=== PATIENT | female | born 1955 | race Caucasian/White ===

== ENCOUNTER 2017-11-25 09:24 | Inpatient (IN) | payer MEDICARE, MEDICAID ==
[~2017-11-25] VITALS: Ht 175.3 cm; Wt 118.1 kg
[~2017-11-25 09:24] MED LIST changes: -ALBU2.5V36 NEB; -IPRA3AMP10 NEB; -PRED-1 PO; -SIMV-49 PO
[2017-11-25] MEDS ORDERED: SIMV-49 PO (09:46)
--- NOTE | 2017-11-25 09:53 | ER Report ---
History and Physical Time Seen By MD: 09:30 Hx. of Stated Complaint: Pt. called EMS for CP/SOB. O2 <50% on home O2 2L. 15L applied with Albuterol x 1. 95% now on NRGB 15L. 18g IV started and blood drawn prior to arrival. 12 lead unsuccessful due to coughing. BP 108 systolic. From home with grand daughter. Allergies: Coded Allergies: latex (Verified Allergy, Unknown, EYE REACTION, 12/20/14) Home Meds Reported Medications Simvastatin (SIMVASTATIN) 20 Mg Tablet, 10 MG PO HS, TAB 11/25/17 Triamterene/Hydrochlorothiazid (DYAZIDE 37.5-25 CAPSULE) 1 Each Capsule, 1 EACH PO DAILY, #30 0 Refills For blood pressure and leg swelling 08/07/12 Amlodipine Besylate (AMLODIPINE BESYLATE) 10 Mg Tablet, 1 TAB PO QDAY, 0 Refills 08/07/12 Discontinued Reported Medications Acetaminophen (ACETAMINOPHEN) 500 Mg Tablet, 500 - 1000 MG PO Q6H PRN 08/07/12 Hx Smoking: Yes Smoking Status: Current: Every Day Smoker Hx Substance Use Disorder: No Hx Alcohol Use: Yes Constitutional Vital Sign - Last 24 Hours 11/25/17 09:25 Resp 22 B/P (MAP) 118/72 Pulse Ox 91 O2 Delivery Non-Rebreather Depart Departure Latest Vital Signs Vital Signs Date Time Temp Pulse Resp B/P (MAP) Pulse Ox O2 Delivery O2 Flow Rate FiO2 11/25/17 09:25 22 118/72 91 Non-Rebreather Condition: Stable Disposition: HOME OR SELF-CARE Referrals: BRIAN GO DO (PCP) VVIEK JERRY MD Nov 25, 2017 09:53
--- NOTE | 2017-11-25 09:55 | EKG ---
FACILITY: [facility] [place] PATIENT NAME: KEON FORBES : [id number] MR: [id number] V: [id number] EXAM DATE: ORDERING PHYSICIAN: VIVEK JERRY TECHNOLOGIST: Test Reason : SOB Blood Pressure : / mmHG Vent. Rate : 083 BPM Atrial Rate : 083 BPM P-R Int : 124 ms QRS Dur : 100 ms QT Int : 406 ms P-R-T Axes : 062 108 066 degrees QTc Int : 477 ms Sinus rhythm with premature atrial complexes Possible Left atrial enlargement Incomplete right bundle branch block Right ventricular hypertrophy with repolarization abnormality Septal infarct (cited on or before 04-AUG-2012) Abnormal ECG When compared with ECG of 07-AUG-2013 15:37, premature atrial complexes are now present Incomplete right bundle branch block is now present Confirmed by LUCA BELLO ([id number]) on 11/25/2017 6:08:02 PM Referred By: Confirmed By:LUCA BELLO
[2017-11-25 10:02] LABS: PLATELET COUNT, AUTOMATED 271 K/uL (150-450)
--- NOTE | 2017-11-25 10:27 | RADIOLOGY IMAGING REPORT ---
FACILITY: [facility] [place] PATIENT NAME: Anne Watkins : 1955 MR: [id number] V: [id number] EXAM DATE: ORDERING PHYSICIAN: VIVEK JERRY TECHNOLOGIST: Location: [facility] - [place], [place] Patient: Anne Watkins : 1955 Visit/Account:[id number] Date of Sevice: 11/25/2017 Exam type: CHEST PA AND LAT History: Shortness of breath and hypoxia and cough Comparison: Chest PA and lateral August 05, 2012. Findings: There are small bilateral pleural effusions present. Coarse linear stranding in the lung bases may r epresent atelectasis and/or developing infiltrates. The cardiac silhouette is enlarged slightly incr eased when compared the prior study. There is no evidence of overt pulmonary edema. Mild spondyloti c changes of the thoracic spine. IMPRESSION: 1. Small bilateral pleural effusions and coarse linear stranding in the lung bases which may represe nt atelectasis and/or developing infiltrates. Cardiomegaly slightly increased when compared the prior study Report Dictated By: Juliana Huynh MD at 11/25/2017 10:20 AM Report E-Signed By: Juliana Huynh MD at 11/25/2017 10:23 AM WSN:[email or web address]
--- NOTE | 2017-11-25 10:27 | ER Report ---
History and Physical Time Seen By MD: 09:35 Hx. of Stated Complaint: Pt. called EMS for CP/SOB. O2 <50% on home O2 2L. 15L applied with Albuterol x 1. 95% now on NRGB 15L. 18g IV started and blood drawn prior to arrival. 12 lead unsuccessful due to coughing. BP 108 systolic. From home with grand daughter. HPI/ROS CHIEF COMPLAINT: Redness of breath HISTORY OF PRESENT ILLNESS: Patient is a 62-year-old female long past medical history of COPD secondary to about 81-83-leec-year smoking history still Mateus smokes about a pack a day currently on 24 7 oxygen was noted by family to be more lethargic and less active confused worsening shortness of breath no orthopnea or PND no chest pain associated was noted by EMS to be a 50% on supplemental O2 well at home patient states that she has exertional dyspnea states that she thinks oxygen off when she smokes patient denies abdominal pain nausea vomiting diarrhea fever chills or additional complaints noted REVIEW OF SYSTEMS: Respiratory: No cough, has dyspnea. Cardiovascular: No chest pain, no palpitations. Gastrointestinal: No vomiting, no abdominal pain. Musculoskeletal: No back pain. Remainder of the 14 system rev: Yes Allergies: Coded Allergies: latex (Verified Allergy, Unknown, EYE REACTION, 12/20/14) Home Meds Active Scripts Prednisone 10 Mg Tab (PREDNISONE 10 MG TAB) 10 Mg Tablet, 10 MG PO DIRECTED, #30 TAB Take 4 tab daily x 3 days, then 3 tab daily x 3 days, then 2 tab daily x 3 days, then 1 tab daily x 3 days. Prov:LUCA BELLO DO 11/30/17 Ipratropium/Albuterol Sulfate (IPRAT-ALBUT 0.5-3(2.5) MG/3 ML) 3 Ml Ampul.neb, 3 ML NEB QIDR, #30 VIAL Prov:LUCA BELLO DO 11/30/17 Albuterol Sulfate 0.083% (ALBUTEROL SULFATE 0.083%) 2.5 Mg/3 Ml Vial.neb, 2.5 MG NEB Q2HR PRN for WHEEZING/SHORTNESS OF BREATH, #30 VIAL Prov:LUCA BELLO DO 11/30/17 Reported Medications Simvastatin (SIMVASTATIN) 20 Mg Tablet, 10 MG PO HS, TAB 11/25/17 Triamterene/Hydrochlorothiazid (DYAZIDE 37.5-25 CAPSULE) 1 Each Capsule, 1 EACH PO DAILY, #30 0 Refills For blood pressure and leg swelling 08/07/12 Amlodipine Besylate (AMLODIPINE BESYLATE) 10 Mg Tablet, 1 TAB PO QDAY, 0 Refills 08/07/12 Discontinued Reported Medications Acetaminophen (ACETAMINOPHEN) 500 Mg Tablet, 500 - 1000 MG PO Q6H PRN 08/07/12 Reviewed Nurses Notes: Yes Old Medical Records Reviewed: Yes Hx Smoking: Yes Smoking Status: Current: Every Day Smoker Hx Substance Use Disorder: No Hx Alcohol Use: Yes Constitutional Physical Exam General Appearance: The patient is alert, has no immediate need for airway protection and no current signs of toxicity. No respiratory distress but definitely work of breathing Eyes: Pupils equal and round no injection. Respiratory: Decreased breath sounds are distant with some coarse rhonchi Cardiac: regular rate and rhythm [ ] Gastrointestinal: Abdomen is soft and non tender, no masses, bowel sounds normal. Musculoskeletal: Neck: Neck is supple and non tender. Extremities have full range of motion and are non tender. Skin: No rashes or lesions. [ ] DIFFERENTIAL DIAGNOSIS: After history and physical exam differential diagnosis was considered for COPD exacerbation CHF exacerbation respiratory compromise cardiac ischemia CO2 narcosis Medical Decision Making Data Points Result Diagram: 11/28/17 0620 11/28/17 0620 Laboratory Hematology Test 11/25/17 09:20 11/25/17 10:04 D-Dimer Quantitative (PE/DVT) 0.68 ug/ml (0-0.50) Troponin I 0.019 ng/ml B-Type Natriuretic Peptide 238 pg/ml (0-100) Influenza Virus Type A (PCR) Negative (NEGATIVE) Influenza Virus Type B (PCR) Negative (NEGATIVE) Chemistry Test 11/25/17 09:20 11/25/17 10:04 D-Dimer Quantitative (PE/DVT) 0.68 ug/ml (0-0.50) Troponin I 0.019 ng/ml B-Type Natriuretic Peptide 238 pg/ml (0-100) Influenza Virus Type A (PCR) Negative (NEGATIVE) Influenza Virus Type B (PCR) Negative (NEGATIVE) Coagulation Test 11/25/17 09:20 D-Dimer Quantitative (PE/DVT) 0.68 ug/ml Microbiology Microbiology Date/Time Source Procedure Growth Status 11/25/17 11:46 Blood Blood Culture - Final NO GROWTH AFTER 5 DAYS IN BOTH THE AE... Complete 11/25/17 11:26 Blood Blood Culture - Final NO GROWTH AFTER 5 DAYS IN BOTH THE AE... Complete ED Course/Re-evaluation ED Course Patient was endorsed oncoming physician Decision to Disposition Date: Dec 01, 2017 Decision to Disposition Time: 08:00 Depart Departure Latest Vital Signs Condition: Improved Disposition: HOME OR SELF-CARE Referrals: BRIAN GO DO (PCP) New Scripts Prednisone 10 Mg Tab (PREDNISONE 10 MG TAB) 10 Mg Tablet 10 MG PO DIRECTED, #30 TAB Take 4 tab daily x 3 days, then 3 tab daily x 3 days, then 2 tab daily x 3 days, then 1 tab daily x 3 days. Prov: LUCA BELLO DO 11/30/17 Ipratropium/Albuterol Sulfate (IPRAT-ALBUT 0.5-3(2.5) MG/3 ML) 3 Ml Ampul.neb 3 ML NEB QIDR, #30 VIAL Prov: LUCA BELLO DO 11/30/17 Albuterol Sulfate 0.083% (ALBUTEROL SULFATE 0.083%) 2.5 Mg/3 Ml Vial.neb 2.5 MG NEB Q2HR PRN for WHEEZING/SHORTNESS OF BREATH, #30 VIAL Prov: LUCA BELLO DO 11/30/17 CARMELA FARRELL MD Nov 25, 2017 10:27
[2017-11-25] MEDS ORDERED: LEVOFLOXACIN/D5W*500 MG/100 ML 100 ML IVPB ONE (10:30)
[2017-11-25] MEDS ORDERED: ALBUTEROL/IPRATROPIUM 3 ML NEB NEB ONE ×2 (10:30→13:55)
[2017-11-25] MEDS ORDERED: methylPREDNIS SUCC 125 MG/2ML IVP ONE (10:30)
[2017-11-25] MEDS ORDERED: IOPAMIDOL 76% 75 ML INFUS BTL 75 ML ONE (12:24)
[2017-11-25] MEDS ORDERED: NS(*) 0.9% 50 ML BAG 50 ML ONE (12:24)
--- NOTE | 2017-11-25 13:18 | RADIOLOGY IMAGING REPORT ---
FACILITY: [facility] PATIENT NAME: Anne Watkins : 1955 MR: [id number] V: [id number] EXAM DATE: ORDERING PHYSICIAN: VIVEK JERRY TECHNOLOGIST: Location: [place] [facility] [place] Patient: Anne Watkins : 1955 Visit/Account:[id number] Date of Sevice: 11/25/2017 CT angiogram chest with contrast Indication: Shortness of breath. Elevated d-dimer. Comparison: 08/07/2013. Technique: Axial CT images are obtained through the chest after administration of 75 mL Isovue 370 IV contrast. Reformatted coronal and sagittal images were reviewed as well as coronal MIP images. One of the following dose optimization techniques was utilized in the performance of this exam: auto mated exposure control; adjustment of the mA and/or kV according to the patient's size; or use of an iterative reconstruction technique. Specific details can be referenced in the facility's radiology C T exam operational policy. FINDINGS: No evidence of filling defect within the pulmonary vasculature to suggest pulmonary embolus. The heart is upper limits normal for size with minimal pericardial fluid. The aorta shows mild ather osclerotic calcific changes without aneurysm or dissection. Mediastinum and hilar regions show a few prominent lymph nodes, largest in the right pretracheal space measuring 2.6 x 1.4 cm and the prevasc ular space measuring 2.7 x 1.3 cm. Prominent right hilar lymph node measuring 2.2 x 1.9 cm. Lymphad enopathy is more prominent than the previous examination. No abnormal density seen in the mediastinu m. Small bilateral pleural effusions, right greater the left. Bibasilar consolidation is present slight ly more so on the right side. Mild atelectasis seen in the anterior aspect both middle lung daniel. Diffuse emphysematous changes. No other consolidations, pneumothorax. There are some mild scarring seen in both lungs. The right lung does show at least two nodules. One lung the minor fissure irwin uring 7 x 4 mm seen on image #49 of series 5. Superior aspect of the right lower lobe does show a 1. 2 x 1.0 cm on image #44. There is a third faint nodular opacity seen along the lateral pleural-based area of the right lower lobe measuring 1.0 x 0.7 cm seen on image #62. No other discrete nodules ar e seen in either lung. The airways are clear. The above lung findings are new from the previous exa mination. Bony structures show no acute fracture or aggressive bony lesions. Degenerative change seen spine. Chest wall shows no enlarged axillary lymph nodes or masses. Limited views of the upper abdomen are unremarkable. IMPRESSION: 1. No evidence of pulmonary embolus. 2. Small bilateral pleural effusions, right greater the left. There is also by basilar consolidation slightly more so on the right side. This consolidation could be secondary to atelectasis or infiltr ate. Mild atelectasis seen along the anterior aspect of both middle lung daniel. 3. There are new right lung nodules described above with the largest measuring 1.2 cm. These are no nspecific this time, however cannot exclude neoplastic or metastatic disease. Suggest follow-up per Fleischner guidelines described below. 4. More prominent lymphadenopathy is nonspecific this time. 5. The heart remains upper limits normal size with minimal pericardial fluid which is not appreciate d previously. FLEISCHNER SOCIETY FOLLOW-UP GUIDELINES FOR NEWLY DETECTED INCIDENTAL NODULES IN PERSONS 35 YEARS OF AGE OR OLDER. *THESE RECOMMENDATIONS DO NOT APPLY TO LUNG CANCER SCREENING, PATIENTS WITH IMMUNOSUPPRESSION , OR PA TIENTS WITH KNOWN PRIMARY MALIGNANCY. MULTIPLE SOLID NODULES If largest nodule size is less than 6 mm: Low risk patient - no follow up needed High risk patient - Optional CT at 12 months. If largest nodule size is 6-8 mm: Low risk patient - follow up CT at 3-6 months, then consider CT at 18-24 months if no change. High risk patient - follow up CT at 3-6 months, then CT at 18-24 months if no change. If largest nodule size is greater than 8 mm: Low risk patient - follow up CT at 3-6 months, then consider CT at 18-24 months High risk patient - follow up CT at 3-6 months, then at 18-24 monthsLOW RISK PATIENT: Minimal or abse nt history of tobacco use and of other known risk factors. HIGH RISK PATIENT: Tobacco use, family history of lung cancer, upper pulmonary lobe location of nodul e, presence of emphysema, pulmonary fibrosis, older age. Janet H, Rachel DP, Edie JM, et al. Guidelines for Management of Incidental Pulmonary Nodules Dete cted on CT Images: From the Fleischner Society 2017. Radiology. Report Dictated By: Leoncio Anthony at 11/25/2017 12:59 PM Report E-Signed By: Leoncio Anthony at 11/25/2017 1:14 PM WSN:[email or web address]
[2017-11-25 14:32] VITALS: BP 122/76
[2017-11-25] MEDS ORDERED: ALBUTEROL 2.5 MG/3 ML NEB NEB PRN (15:25)
--- NOTE | 2017-11-25 15:48 | History & Physical ---
History of Present Illness Chief Complaint Shortness of breath History of Present Illness This patient presented to the emergency room complaining of increased cough and shortness of breath. She reports that her symptoms started this morning. She denies fever. History Problems: (1) Hypertension Home Meds Reported Medications Simvastatin (SIMVASTATIN) 20 Mg Tablet, 10 MG PO HS, TAB 11/25/17 Triamterene/Hydrochlorothiazid (DYAZIDE 37.5-25 CAPSULE) 1 Each Capsule, 1 EACH PO DAILY, #30 0 Refills For blood pressure and leg swelling 08/07/12 Amlodipine Besylate (AMLODIPINE BESYLATE) 10 Mg Tablet, 1 TAB PO QDAY, 0 Refills 08/07/12 Discontinued Reported Medications Acetaminophen (ACETAMINOPHEN) 500 Mg Tablet, 500 - 1000 MG PO Q6H PRN 08/07/12 Allergies: Coded Allergies: latex (Verified Allergy, Unknown, EYE REACTION, 12/20/14) Patient History: Patient reports no known family medical history. Hx Smoking: Yes Smoking Status: Current: Every Day Smoker Caffeine Intake: Coffee Caffeine/Cups Per Day: 6 Hx Alcohol Use: Yes (1-2 drinks/day) Hx Substance Use Disorder: No Review of Systems All Systems Reviewed/Normal: Yes, Except as Noted Respiratory: Shortness of Breath, Cough Exam Vital Signs Vital Signs Date Time Temp Pulse Resp B/P (MAP) Pulse Ox O2 Delivery O2 Flow Rate FiO2 11/25/17 15:07 89 Vapotherm 25.0 100.0 11/25/17 14:32 97.9 20 122/76 (91) 11/25/17 14:15 81 Neuro: No Gross deficits Eyes: PERRLA Cardiovascular: Regular Rate and Rhythm Respiratory: Other (Dimished bilateral.) GI: Abd Soft and Non-Tender Extremities: No Edema Integumentary: No Cyanosis Medical Decision Making Data Points Result Diagram: 11/25/1791911/25/17919 EKG / Imaging Imaging CT chest reviewed. Assessment and Plan Problems: (1) COPD exacerbation Assessment & Plan: She did present with increased shortness of breath and a cough. She has been started on IV steroids and nebulizers. (2) Bacterial pneumonia Assessment & Plan: Her chest CT did reveal an area of infiltrate. She received a dose of IV levofloxacin in the emergency room. She will continue on oral levofloxacin. Blood cultures are pending. (3) Hypertension Assessment & Plan: She is on chronic treatment with amlodipine and Dyazide. (4) Pulmonary nodule Assessment & Plan: Her CT scan did detect a 1.2cm nodule. She is a smoker and a follow up CT scan is recommended. Copies to: BRIAN GO DO ; Venous Thromboembolism Antithrombotics Is Pt On Any Antithrombotics?: No Exam Sepsis Risk: No Definite Risk Problem Qualifiers (1) Hypertension: Hypertension type: essential hypertension Qualified Codes: I10 - Essential (primary) hypertension LUCA BELLO DO Nov 25, 2017 15:48
[2017-11-25] MEDS ORDERED: DIAZEPAM 10 MG TAB PO ONE (17:10)
[2017-11-25] MEDS: ALBUTEROL/IPRATROPIUM 3 ML NEB NEB SCH (17:10)
[2017-11-25] MEDS: methylPREDNIS SUCC 125 MG/2ML IVP SCH ×2 (17:58→23:39)
[2017-11-25 19:55] VITALS: BP 111/78
[2017-11-25] MEDS: SIMVASTATIN 20 MG TAB PO SCH (21:40)
[2017-11-25] MEDS: NICOTINE 21 MG/24 HR PATCH TD SCH (21:41)
[2017-11-25 23:36] VITALS: BP 96/50
[2017-11-26] MEDS: ALBUTEROL/IPRATROPIUM 3 ML NEB NEB SCH ×4 (05:46→17:49)
[2017-11-26] MEDS: methylPREDNIS SUCC 125 MG/2ML IVP SCH ×4 (05:59→23:35)
[2017-11-26 06:02] LABS: PLATELET COUNT, AUTOMATED 223 K/uL (150-450)
[2017-11-26 08:27] VITALS: BP 119/73
[2017-11-26] MEDS: ENOXAPARIN 40 MG/0.4ML SYR SC SCH (08:55)
[2017-11-26] MEDS: NICOTINE 21 MG/24 HR PATCH TD SCH (08:55)
[2017-11-26] MEDS: amLODIPine BESYL(*) 5 MG TAB PO SCH (09:00)
[2017-11-26] MEDS: TRIAMTERENE/HCTZ 37.5-25MG CAPSULE PO SCH (09:00)
--- NOTE | 2017-11-26 09:31 | Hospitalist Progress Note ---
Subjective Progress Notes Subjective She reports some minor improvements. Less dyspnea. Physical Exam Vital Signs Date Time Temp Pulse Resp B/P (MAP) Pulse Ox O2 Delivery O2 Flow Rate FiO2 11/26/17 09:17 78 18 11/26/17 09:07 92 Vapotherm 35.0 95.0 11/26/17 08:27 98.8 119/73 (88) Intake and Output 11/26/17 07:00 Intake Total 100 ml Balance 100 ml Intake Oral 0 ml IV Total 100 ml # Voids 3 General Appearance: Alert, Awake Cardiovascular: Regular Rate and Rhythm (distant tones) Respiratory: Other (diminished breath sounds throughout/few soft expiratory wheezes) GI: Soft and Non-Tender Extremities: Warm, Perfused, Edema (trace both feet/ankles) Psych: Alert & Oriented X3 Result Diagram: 11/26/1755011/26/17550 Assessment and Plan Problems: (1) COPD exacerbation Assessment & Plan: She did present with increased shortness of breath/cough. CT pulmonary angiogram should small pleural effusions and questionable infiltrate. She has been started on IV steroids and nebulizers. Will add IV antibiotics. Check echocardiogram to evaluate RV/LV function. She does appear to be significant "hypoventilator" with elevated pCO2. She would be at risk for sleep apnea as well. Will try BiPAP as well. (2) Bacterial pneumonia Assessment & Plan: Her chest CT did reveal an area of possible infiltrate. She will continue on levofloxacin. Blood cultures are pending. (3) Hypertension Assessment & Plan: She is on chronic treatment with amlodipine and Dyazide. Monitor and resume as needed. (4) Pulmonary nodule Assessment & Plan: Her CT scan did detect a 1.2cm nodule. She is a smoker and a short-term follow up CT scan is recommended. Exam Sepsis Risk: No Definite Risk Problem Qualifiers (1) Hypertension: Hypertension type: essential hypertension Qualified Codes: I10 - Essential (primary) hypertension TRI CARTER MD Nov 26, 2017 09:31
[2017-11-26] MEDS ORDERED: LEVOFLOXACIN 750 MG TAB PO SCH (10:00)
[2017-11-26] MEDS: LEVOFLOXACIN/D5W 750 MG/150 ML 150 ML IVPB SCH (11:05)
[2017-11-26] MEDS ORDERED: NS(*) 0.9% 250 ML BAG 250 ML ONE (11:07)
[2017-11-26 14:47] VITALS: Ht 175.3 cm; Wt 118.1 kg
[2017-11-26 17:42] VITALS: BP 111/56
[2017-11-26 19:23] VITALS: BP 105/60
[2017-11-26 19:47] VITALS: BP 115/61
[2017-11-26] MEDS: SIMVASTATIN 20 MG TAB PO SCH (20:12)
[2017-11-26 23:31] VITALS: BP 131/80
[2017-11-27 03:38] VITALS: BP 128/83
[2017-11-27] MEDS: ALBUTEROL/IPRATROPIUM 3 ML NEB NEB SCH ×4 (05:32→18:04)
[2017-11-27] MEDS: methylPREDNIS SUCC 125 MG/2ML IVP SCH ×3 (06:14→17:21)
[2017-11-27 06:15] LABS: PLATELET COUNT, AUTOMATED 223 K/uL (150-450)
--- NOTE | 2017-11-27 08:39 | Hospitalist Progress Note ---
Subjective Progress Notes Subjective No new complaints. Tolerating BiPAP fairly well. Physical Exam Vital Signs Date Time Temp Pulse Resp B/P (MAP) Pulse Ox O2 Delivery O2 Flow Rate FiO2 11/27/17 05:33 70 17 11/27/17 05:26 91 Bi-PAP 90.0 11/27/17 03:38 97.7 128/83 (98) 11/26/17 19:23 35.0 Intake and Output 11/27/17 07:00 Intake Total 956 ml Balance 956 ml Intake Oral 796 ml IV Total 160 ml # Voids 5 General Appearance: Alert, Awake, No Acute Distress, Other (Wearing BiPAP.) Neuro: No Gross deficits Eyes: PERRLA Cardiovascular: Regular Rate and Rhythm Respiratory: Other (Decreased BS throughout, especially in the bases. No obvious rales, rhonchi or wheezing.) GI: Soft and Non-Tender Extremities: Warm, Perfused Psych: Appropriate Mood & Affect Result Diagram: 11/27/1752811/27/17528 Assessment and Plan Problems: (1) COPD exacerbation Assessment & Plan: She did present with increased shortness of breath/cough. CT pulmonary angiogram should small pleural effusions and questionable infiltrate. She has been started on IV steroids and nebulizers. IV antibiotics added as well. Echocardiogram shows normal LV function, grade 1 diastolic dysfunction and pulmonary HTN. She does appear to be significant "hypoventilator" with elevated pCO2. She would be at risk for sleep apnea as well based on her body habitus. Will continue BiPAP as well and wean as tolerated. (2) Bacterial pneumonia Assessment & Plan: Her chest CT did reveal an area of possible infiltrate. She will continue on levofloxacin. Blood cultures are negative thus far. (3) Hypertension Assessment & Plan: She is on chronic treatment with amlodipine and Dyazide. Monitor and resume as needed. (4) Pulmonary nodule Assessment & Plan: Her CT scan did detect a 1.2cm nodule. She is a smoker and a short-term follow up CT scan is recommended. Time Spent on Plan of Care: < 30 min Exam Sepsis Risk: No Definite Risk Problem Qualifiers (1) Hypertension: Hypertension type: essential hypertension Qualified Codes: I10 - Essential (primary) hypertension АННА CARTER MD Nov 27, 2017 08:39
[2017-11-27] MEDS: amLODIPine BESYL(*) 5 MG TAB PO SCH (09:00)
[2017-11-27] MEDS: TRIAMTERENE/HCTZ 37.5-25MG CAPSULE PO SCH (09:00)
[2017-11-27] MEDS: LEVOFLOXACIN/D5W 750 MG/150 ML 150 ML IVPB SCH (09:53)
[2017-11-27] MEDS: ENOXAPARIN 40 MG/0.4ML SYR SC SCH (09:53)
[2017-11-27] MEDS: NICOTINE 21 MG/24 HR PATCH TD SCH (09:56)
[2017-11-27 10:00] VITALS: BP 115/77
[2017-11-27 11:34] VITALS: BP 121/77
--- NOTE | 2017-11-27 14:44 | Antimicrobial Stewardship ---
Antimicrobial Time Out Antimicrobial Stewardship MD Service: Hospitalist Indications: CAP Antimicrobial Used LEVAQUIN 750MG IV DAILY Start Date: Nov 25, 2017 Culture Results: No (BLOOD CULTURES - NO GROWTH) Eligible for PO Conversion Eligable for PO Conversion: Yes (HAS BEEN AFEBRILE, WBC NOT ELEVATED) Reviewed with Provider Reviewed w/ Provider on Rounds: No Comments Comments Has been on Levaquin 750mg IV for 3 days - remains afebrile and WBC not elevated Chest x-ray showed possible infiltrate and has COPD exacerbation BELINDA SHAH Nov 27, 2017 14:44
[2017-11-27 15:22] VITALS: BP 122/85
[2017-11-27] MEDS ORDERED: INFLUENZA VIRUS VAC 0.5ML SYR IM ONLY ONE (15:25)
[2017-11-27 19:34] VITALS: BP 125/59
[2017-11-27] MEDS: SIMVASTATIN 20 MG TAB PO SCH (20:37)
[2017-11-27 23:15] VITALS: BP 138/85
[2017-11-28] MEDS: methylPREDNIS SUCC 125 MG/2ML IVP SCH ×4 (00:14→17:53)
[2017-11-28 00:15] VITALS: BP_SYST 131; BP_SYST 138; BP_DIAS 84; BP_DIAS 85
[2017-11-28 03:36] VITALS: BP_SYST 126; BP_SYST 132; BP_DIAS 114; BP_DIAS 82
[2017-11-28] MEDS: ALBUTEROL/IPRATROPIUM 3 ML NEB NEB SCH ×4 (05:33→18:26)
[2017-11-28 06:35] LABS: PLATELET COUNT, AUTOMATED 239 K/uL (150-450)
[2017-11-28] MEDS: TRIAMTERENE/HCTZ 37.5-25MG CAPSULE PO SCH (09:00)
[2017-11-28] MEDS: amLODIPine BESYL(*) 5 MG TAB PO SCH (09:00)
[2017-11-28 09:01] VITALS: BP 121/71
[2017-11-28] MEDS: NICOTINE 21 MG/24 HR PATCH TD SCH (09:03)
[2017-11-28] MEDS: ENOXAPARIN 40 MG/0.4ML SYR SC SCH (09:04)
[2017-11-28] MEDS: LEVOFLOXACIN 750 MG TAB PO SCH (10:18)
--- NOTE | 2017-11-28 12:23 | Hospitalist Progress Note ---
Subjective Progress Notes Subjective Overall feeling better. Still with high O2 requirement. Physical Exam Vital Signs Date Time Temp Pulse Resp B/P (MAP) Pulse Ox O2 Delivery O2 Flow Rate FiO2 11/28/17 10:19 93 High-Flow Nasal Cannula 10.0 11/28/17 09:27 74 17 11/28/17 09:01 99.0 121/71 (88) 11/28/17 00:15 70.0 Intake and Output 11/28/17 07:00 Intake Total 1390 ml Balance 1390 ml Intake Oral 1390 ml # Voids 9 General Appearance: Other (Mild work of breathing. ) Respiratory: Clear to Auscultation (Not moving air to bases well) Extremities: No Edema Result Diagram: 11/28/1761911/28/17619 Assessment and Plan Problems: (1) COPD exacerbation Assessment & Plan: She did present with increased shortness of breath/cough. CT pulmonary angiogram should small pleural effusions and questionable infiltrate. She has been started on IV steroids and nebulizers. IV Levofloxacin added as well. Will switch to oral Levofloxacin. Echocardiogram shows normal LV function, grade 1 diastolic dysfunction and pulmonary HTN. She does appear to be significant "hypoventilator" with elevated pCO2. She would be at risk for sleep apnea as well based on her body habitus. Still with a high O2 requirement. Will continue BiPAP prn. She might need BiPAP at home. (2) Bacterial pneumonia Assessment & Plan: Her chest CT did reveal an area of possible infiltrate. She will continue on levofloxacin. Blood cultures are negative thus far. (3) Hypertension Assessment & Plan: She is on chronic treatment with amlodipine and Dyazide. Monitor and resume as needed. (4) Pulmonary nodule Assessment & Plan: Her CT scan did detect a 1.2cm nodule. She is a smoker and a short-term follow up CT scan is recommended. Exam Sepsis Risk: No Definite Risk Problem Qualifiers (1) Hypertension: Hypertension type: essential hypertension Qualified Codes: I10 - Essential (primary) hypertension MALLORY DAS MD Nov 28, 2017 12:23
[2017-11-28 14:34] VITALS: BP 118/81
[2017-11-28 19:17] VITALS: BP 127/81
[2017-11-28] MEDS: SIMVASTATIN 20 MG TAB PO SCH (20:08)
[2017-11-29 00:04] VITALS: BP 139/96
[2017-11-29 03:32] VITALS: BP 121/83
[2017-11-29] MEDS: ALBUTEROL/IPRATROPIUM 3 ML NEB NEB SCH ×4 (06:12→16:54)
[2017-11-29 07:20] VITALS: BP 131/75
[2017-11-29] MEDS: predniSONE 20 MG TAB PO SCH (08:01)
[2017-11-29] MEDS: amLODIPine BESYL(*) 5 MG TAB PO SCH (09:00)
[2017-11-29] MEDS: NICOTINE 21 MG/24 HR PATCH TD SCH (09:19)
[2017-11-29] MEDS: LEVOFLOXACIN 750 MG TAB PO SCH (09:19)
[2017-11-29] MEDS: ENOXAPARIN 40 MG/0.4ML SYR SC SCH (09:20)
[2017-11-29] MEDS: TRIAMTERENE/HCTZ 37.5-25MG CAPSULE PO SCH (09:20)
--- NOTE | 2017-11-29 14:22 | Hospitalist Progress Note ---
Subjective Progress Notes Subjective 62F admitted for COPD exacerbation. O2 requirements improving, still not to baseline. Denies home inhalers due to cost. Discussed stopping smoking. Patient Complains of: Respiratory: Cough, Shortness of Breath Physical Exam Vital Signs Date Time Temp Pulse Resp B/P (MAP) Pulse Ox O2 Delivery O2 Flow Rate FiO2 11/29/17 13:21 90 High-Flow Nasal Cannula 8.0 11/29/17 13:21 76 18 11/29/17 07:20 98.1 131/75 (93) 70.0 Intake and Output 11/29/17 06:59 Intake Total 1028 ml Balance 1028 ml Intake Oral 1028 ml # Voids 3 General Appearance: Alert, Awake, No Acute Distress Neuro: No Gross deficits Eyes: PERRLA ENT: Normal Neck: No Masses Cardiovascular: Normal Rhythm & Peripheral Pulses Respiratory: No Respiratory Distress (decreased breath sounds, no wheezing) GI: Soft and Non-Tender Lymph: Cervical Nodes Benign Musculoskeletal: No Weakness/Pain Extremities: Soft and Non Tender, Warm, Pulses, Perfused; No Edema Psych: Alert & Oriented X3 Result Diagram: 11/28/1761911/28/17619 Assessment and Plan Problems: (1) COPD exacerbation Assessment & Plan: She did present with increased shortness of breath/cough. CT pulmonary angiogram should small pleural effusions and questionable infiltrate. She was started on IV steroids and nebulizers, levofloxacin IV. Changed to PO Levofloxacin and prednisone. Echocardiogram shows normal LV fun ction, grade 1 diastolic dysfunction and pulmonary HTN. She does appear to be significant "hypoventilator" with elevated pCO2. She would be at risk for sleep apnea as well based on her body habitus. Still with a high O2 requirement. Will continue BiPAP prn. Working with RT to see if home BiPAP can be arranged.. (2) Bacterial pneumonia Assessment & Plan: Her chest CT did reveal an area of possible infiltrate. She will continue on levofloxacin. Blood cultures are negative thus far. (3) Hypertension Assessment & Plan: She is on chronic treatment with amlodipine and Dyazide. Monitor and resume as needed. (4) Pulmonary nodule Assessment & Plan: Her CT scan did detect a 1.2cm nodule. She is a smoker and a short-term follow up CT scan is recommended. Exam Sepsis Risk: No Definite Risk Problem Qualifiers (1) Hypertension: Hypertension type: essential hypertension Qualified Codes: I10 - Essential (primary) hypertension KAYLEN AHUMADA DO Nov 29, 2017 14:22
[2017-11-29 14:31] VITALS: BP 126/67
[2017-11-29] MEDS: SIMVASTATIN 20 MG TAB PO SCH (20:21)
[2017-11-29 20:25] VITALS: BP 126/67
[2017-11-30 03:18] VITALS: BP 128/72
[2017-11-30] MEDS: ALBUTEROL/IPRATROPIUM 3 ML NEB NEB SCH ×2 (03:39→09:20)
[2017-11-30 09:12] VITALS: BP 105/77
[2017-11-30] MEDS: TRIAMTERENE/HCTZ 37.5-25MG CAPSULE PO SCH (09:15)
[2017-11-30] MEDS: amLODIPine BESYL(*) 5 MG TAB PO SCH (09:15)
[2017-11-30] MEDS: LEVOFLOXACIN 750 MG TAB PO SCH (09:15)
[2017-11-30] MEDS: predniSONE 20 MG TAB PO SCH (09:15)
[2017-11-30] MEDS: NICOTINE 21 MG/24 HR PATCH TD SCH (09:16)
[2017-11-30] MEDS: ENOXAPARIN 40 MG/0.4ML SYR SC SCH (09:16)
[2017-11-30] MEDS ORDERED: ALBU2.5V36 NEB (10:02)
[2017-11-30] MEDS ORDERED: PRED-1 PO (10:02)
[2017-11-30] MEDS ORDERED: IPRA3AMP10 NEB (10:02)
--- NOTE | 2017-11-30 10:09 | Hospitalist Depart ---
Discharge Summary Reason for Hosp/Final Diag: (1) COPD exacerbation Hospital Course & Plan: She did present with increased shortness of breath /cough. CT pulmonary angiogram showed small pleural effusions and a questionable infiltrate. She was started on IV steroids and nebulizers. She was started on empiric treatment with levofloxacin, which has now been completed. She will discharge with a home nebulizer machine and a steroid taper. (2) CO2 retention Hospital Course & Plan: She has shown a compensated respiratory acidosis, which is where she likely is chronically. Her levels did not improve with BiPAP, but she may benefit from a sleep study. (3) Bacterial pneumonia Hospital Course & Plan: She was started on levofloxacin as above. Her cultures have been negative. (4) Hypertension Hospital Course & Plan: She is on chronic treatment with amlodipine and Dyazide. (5) Pulmonary nodule Hospital Course & Plan: Her CT scan did detect a 1.2cm nodule. She is a smoker and a repeat CT scan is recommended in 3 months. Departure Latest Vital Signs Vital Signs 11/30/17 11/30/17 11/30/17 11/30/17 03:38 09:12 09:20 09:28 Temp 98.5 Pulse 81 Resp 18 B/P (MAP) 105/77 (86) Pulse Ox 91 O2 Delivery High-Flow Nasal Cannula O2 Flow Rate 5.0 FiO2 70.0 Weight (Pounds): 260 Weight (Ounces): 6.0 Result Diagram: 11/28/1761911/28/17619 Condition: Improved Discharge: Home, Home Health PT/OT Follow Up For: PT Evaluation and Treat Home Health RN Follow Up For: Medication Management, Nursing Assessment Discharge Instructions Home Meds Active Scripts Prednisone 10 Mg Tab (PREDNISONE 10 MG TAB) 10 Mg Tablet, 10 MG PO DIRECTED, #30 TAB Take 4 tab daily x 3 days, then 3 tab daily x 3 days, then 2 tab daily x 3 days, then 1 tab daily x 3 days. Prov:LUCA BELLO DO 11/30/17 Ipratropium/Albuterol Sulfate (IPRAT-ALBUT 0.5-3(2.5) MG/3 ML) 3 Ml Ampul.neb, 3 ML NEB QIDR, #30 VIAL Prov:LUCA BELLO DO 11/30/17 Albuterol Sulfate 0.083% (ALBUTEROL SULFATE 0.083%) 2.5 Mg/3 Ml Vial.neb, 2.5 MG NEB Q2HR PRN for WHEEZING/SHORTNESS OF BREATH, #30 VIAL Prov:LUCA BELLO DO 11/30/17 Reported Medications Simvastatin (SIMVASTATIN) 20 Mg Tablet, 10 MG PO HS, TAB 11/25/17 Triamterene/Hydrochlorothiazid (DYAZIDE 37.5-25 CAPSULE) 1 Each Capsule, 1 EACH PO DAILY, #30 0 Refills For blood pressure and leg swelling 08/07/12 Amlodipine Besylate (AMLODIPINE BESYLATE) 10 Mg Tablet, 1 TAB PO QDAY, 0 Refills 08/07/12 Discontinued Reported Medications Acetaminophen (ACETAMINOPHEN) 500 Mg Tablet, 500 - 1000 MG PO Q6H PRN 08/07/12 Diet: Regular Activity: As Tolerated Copies to: BRIAN GO DO ; Venous Thromboembolism Antithrombotics Is Pt On Any Antithrombotics?: No Gklz-[id number] Certification Face to Face Home Health Certification Institutional Provider conducted the [id number] encounter. Electronic Undersigning Physician Certifies Home Health. I certify that the patient has been under my care and that I had a [id number] encounter that meets the physician [id number] encounter requirements with this patient. This patient is home-bound due to safety issues and continues to require kenn tance with ADL's. I certify that based on my findings, that Nursing, Aides and the following Home Health services are medically necessary: Medical Necessity: Nursing, Rehab Date Face to Face Conducted: Nov 30, 2017 Problem Qualifiers (1) Hypertension: Hypertension type: essential hypertension Qualified Codes: I10 - Essential (primary) hypertension LUCA BELLO DO Nov 30, 2017 10:09
== END 2017-11-30 13:00 | disposition home health service (06) | DRG 190 ==
LOC: ER 10:08 → MED 13:55
PROVIDERS: ADMIT Family Medicine; ATTEND Family Medicine
PROC: 5A09357 Assistance with Respiratory Ventilation, Less than 24 Consecutive Hours, Continuous Positive Airway Pressure (ICD-10-PCS; principal; 2017-11-25)
DX: J44.1 Chronic obstructive pulmonary disease with (acute) exacerbation (principal); J15.9 Unspecified bacterial pneumonia; E87.2 Acidosis; J44.0 Chronic obstructive pulmonary disease with (acute) lower respiratory infection; I10 Essential (primary) hypertension; R91.1 Solitary pulmonary nodule; I27.20 Pulmonary hypertension, unspecified; F17.210 Nicotine dependence, cigarettes, uncomplicated; Z91.040 Latex allergy status; Z99.81 Dependence on supplemental oxygen
CPT/HCPCS: 36415; 36600; 71046; 71275; 82040; 82247; 82310; 82374; 82435; 82565; 82803; 82947; 83880; 84075; 84132; 84155; 84295; 84439; 84443; 84450; 84460; 84481; 84484; 84520; 85025; 85379; 87040; 87502; 93005; 93306; 94640; 94660; 94667; 94668; 97161; 97166; J1650; J1956; J2930; J7050; J7512; J7613; Q9967

== ENCOUNTER → 2017-11-25 | Outpatient (CLI) | payer MEDICARE ==
[~2017-11-25] MED LIST: ACET-2043 PO; ALBU2.5V36 NEB; ALBU8.5H INH; AMLO-113 PO; AMOX-559 PO; AZIT1PAC13; BENZ100C26 PO; FLUT1DIS29 INH; IPRA3AMP10 NEB; PRED-1 PO; SIMV-49 PO; TIO18R INH; TRIA1CAP81 PO
[2017-11-26 14:47] VITALS: BMI 38.4
== END ==
LOC: AMB 09:01
PROVIDERS: ATTEND Nurse Practitioner
DX: R07.1 Chest pain on breathing (principal); R09.02 Hypoxemia
CPT/HCPCS: A0425; A0427

== ENCOUNTER 2018-03-22 13:02 | Inpatient (IN) | payer MEDICARE, MEDICAID ==
[~2018-03-22] VITALS: Ht 175.3 cm; Wt 114.3 kg
[~2018-03-22 13:02] MED LIST changes: -PRED20TA6 PO; -SIMV10TA98 PO; -TRIA-20 PO
[2018-03-22] MEDS ORDERED: methylPREDNIS SUCC 125 MG/2ML IVP ONE (13:15)
[2018-03-22] MEDS ORDERED: ALBUTEROL/IPRATROPIUM 3 ML NEB NEB ONE (13:15)
--- NOTE | 2018-03-22 13:17 | ER Report ---
History and Physical Time Seen By MD: 13:07 Hx. of Stated Complaint: Pt. here s/p fall at home in her kitchen. When EMS arrived, O2 sat 60% on 3.5L home O2, EMS reported pt. cyanotic. Capograpy 60%. She had a duo-nep in route, increased to 91%. Observed work of breathing in triage. RR 28. Speaking in full sentences HPI/ROS CHIEF COMPLAINT: Low oxygen saturations HISTORY OF PRESENT ILLNESS: 62-year-old female patient presents to emergency room with complaint of low oxygen saturation saturations. Patient states that she had been at home today and fell. She states that her knees gave out on her. She states she does have a history of knee problems and believes that she probably needs to have her knees replaced, however she states she is not mentally ready for that. She states that she fell in the kitchen was unable to get up on her own. She did up calling EMS. She states that she just wanted help getting up, however they did note that she was 50% on 3-1/2 L of oxygen. At that time they decided to bring her into the emergency room. They did do a DuoNeb which seemed to help considerably. Patient denies having any fevers, chills, nausea, vomiting or diarrhea. Patient says she does not feel terribly short of breath. Patient denies any recent changes to her medications. REVIEW OF SYSTEMS: Respiratory: As noted above Cardiovascular: No chest pain, no palpitations. Gastrointestinal: No vomiting, no abdominal pain. Musculoskeletal: As noted above Allergies: Coded Allergies: latex (Verified Allergy, Unknown, EYE REACTION, 03/22/18) Home Meds Active Scripts Ipratropium/Albuterol Sulfate (IPRAT-ALBUT 0.5-3(2.5) MG/3 ML) 3 Ml Ampul.neb, 3 ML NEB QIDR, #30 VIAL Prov:LUCA BELLO DO 11/30/17 Albuterol Sulfate 0.083% (ALBUTEROL SULFATE 0.083%) 2.5 Mg/3 Ml Vial.neb, 2.5 MG NEB Q2HR PRN for WHEEZING/SHORTNESS OF BREATH, #30 VIAL Prov:LUCA BELLO DO 11/30/17 Reported Medications Simvastatin (SIMVASTATIN) 10 Mg Tablet, 10 MG PO HS, TAB 03/22/18 Triamterene/Hydrochlorothiazid (TRIAMTERENE-HCTZ 37.5-25 MG TB) 1 Each Tablet, 1 TAB PO QDAY 03/22/18 Amlodipine Besylate (AMLODIPINE BESYLATE) 10 Mg Tablet, 1 TAB PO QDAY, 0 Refills 08/07/12 Discontinued Reported Medications Simvastatin (SIMVASTATIN) 20 Mg Tablet, 10 MG PO HS, TAB 11/25/17 Discontinued Scripts Prednisone 10 Mg Tab (PREDNISONE 10 MG TAB) 10 Mg Tablet, 10 MG PO DIRECTED, #30 TAB Take 4 tab daily x 3 days, then 3 tab daily x 3 days, then 2 tab daily x 3 days, then 1 tab daily x 3 days. Prov:LUCA BELLO 11/30/17 Past Medical/Surgical History Patient has a past medical history of congestive heart failure, hypertension, chronic cough, COPD, bilateral arthritis, alcohol use. Patient has a surgical history bilateral knee surgery, tubal ligation, appendectomy. Patient has unknown family medical history. Reviewed Nurses Notes: Yes Hx Smoking: Yes Smoking Status: Current: Every Day Smoker Hx Substance Use Disorder: No Hx Alcohol Use: Yes (1-2 drinks/day) Constitutional Vital Sign - Last 24 Hours 03/22/18 03/22/18 03/22/18 03/22/18 13:04 13:06 13:20 13:21 Pulse 84 80 Resp 28 16 B/P (MAP) 106/68 106/68 (81) Pulse Ox 79 O2 Delivery Non-Rebreather O2 Flow Rate 15.0 03/22/18 03/22/18 03/22/18 03/22/18 13:21 13:30 13:32 14:00 Resp 28 B/P (MAP) 100/72 (81) 104/55 (71) Pulse Ox 95 91 O2 Delivery Non-Rebreather O2 Flow Rate 15.0 03/22/18 03/22/18 03/22/18 03/22/18 14:02 14:07 14:30 14:37 Pulse 83 85 ??? Resp 23 49 B/P (MAP) ???/??? (0035) Pulse Ox 89 91 03/22/18 03/22/18 03/22/18 03/22/18 15:00 15:07 15:30 15:32 Pulse 83 Resp 32 B/P (MAP) 106/84 (91) 98/57 (71) 112/65 (81) Pulse Ox 91 03/22/18 03/22/18 15:37 16:00 Pulse 81 Resp 18 B/P (MAP) 128/115 (119) Pulse Ox 93 Physical Exam General Appearance: The patient is alert, has no immediate need for airway protection and no current signs of toxicity. Respiratory: Chest is non tender, lungs are very diminished to auscultation. Cardiac: regular rate and rhythm Gastrointestinal: Abdomen is soft and non tender, no masses, bowel sounds normal. Musculoskeletal: Neck: Neck is supple and non tender. Extremities have full range of motion and are non tender. Skin: No rashes or lesions. DIFFERENTIAL DIAGNOSIS: After history and physical exam differential diagnosis was considered for shortness of breath including but not limited to pulmonary infectious process, COPD, asthma, pulmonary embolus and congestive heart failure. Medical Decision Making Data Points Result Diagram: 03/22/18 1314 03/22/18 1314 Laboratory Hematology Test 03/22/18 13:14 03/22/18 14:09 Red Blood Count 5.77 M/uL (4.17-5.56) Mean Corpuscular Volume 99.7 fL (80.0-96.0) Mean Corpuscular Hemoglobin 31.8 pg (26.0-33.0) Mean Corpuscular Hemoglobin Concent 31.9 g/dL (32.0-36.0) Red Cell Distribution Width 16.2 % (11.5-14.5) Mean Platelet Volume 8.5 fL (7.2-11.1) Neutrophils (%) (Auto) 82.2 % (39.4-72.5) Lymphocytes (%) (Auto) 10.3 % (17.6-49.6) Monocytes (%) (Auto) 5.2 % (4.1-12.4) Eosinophils (%) (Auto) 1.5 % (0.4-6.7) Basophils (%) (Auto) 0.8 % (0.3-1.4) Nucleated RBC Relative Count (auto) 0.0 /100WBC Neutrophils # (Auto) 6.1 K/uL (2.0-7.4) Lymphocytes # (Auto) 0.8 K/uL (1.3-3.6) Monocytes # (Auto) 0.4 K/uL (0.3-1.0) Eosinophils # (Auto) 0.1 K/uL (0.0-0.5) Basophils # (Auto) 0.1 K/uL (0.0-0.1) Nucleated RBC Absolute Count (auto) 0.00 K/uL D-Dimer Quantitative (PE/DVT) 1.30 ug/ml (0-0.50) Sodium Level 139 mmol/L (137-145) Potassium Level 3.9 mmol/L (3.5-5.0) Chloride Level 95 mmol/L (98-107) Carbon Dioxide Level 45 mmol/L (22-31) Blood Urea Nitrogen 18 mg/dl (7-18) Creatinine 0.70 mg/dl (0.52-1.04) Glomerular Filtration Rate Calc > 60.0 Random Glucose 172 mg/dl (75-110) Lactate 2.3 mmol/L (0.7-2.1) Calcium Level 9.1 mg/dl (8.4-10.2) Total Bilirubin 0.9 mg/dl (0.2-1.3) Aspartate Amino Transf (AST/SGOT) 22 U/L (0-35) Alanine Aminotransferase (ALT/SGPT) 25 U/L (0-56) Alkaline Phosphatase 70 U/L (0-126) Troponin I < 0.012 ng/ml B-Type Natriuretic Peptide 56 pg/ml (0-100) Total Protein 6.8 g/dl (6.3-8.2) Albumin 3.8 g/dl (3.5-5.0) Blood Gas Puncture Site Left radial Blood Gas Patient Temperature 98.5 DEGREES Arterial Blood pH 7.33 (7.35-7.45) Arterial Blood Partial Pressure CO2 82 mmHg (32-37) Arterial Blood Partial Pressure O2 62 mmHg (60-80) Arterial Blood HCO3 43 mmol/L (20-26) Arterial Blood Oxygen Saturation 88 % (92-100) Arterial Blood Base Excess 17.0 mmol/L Matt Test Acceptable Oxygen Liters/Minute 80 Chemistry Test 03/22/18 13:14 03/22/18 14:09 White Blood Count 7.5 k/uL (4.5-11.0) Red Blood Count 5.77 M/uL (4.17-5.56) Hemoglobin 18.3 g/dL (12.0-16.0) Hematocrit 57.5 % (34.0-47.0) Mean Corpuscular Volume 99.7 fL (80.0-96.0) Mean Corpuscular Hemoglobin 31.8 pg (26.0-33.0) Mean Corpuscular Hemoglobin Concent 31.9 g/dL (32.0-36.0) Red Cell Distribution Width 16.2 % (11.5-14.5) Platelet Count 242 K/uL (150-450) Mean Platelet Volume 8.5 fL (7.2-11.1) Neutrophils (%) (Auto) 82.2 % (39.4-72.5) Lymphocytes (%) (Auto) 10.3 % (17.6-49.6) Monocytes (%) (Auto) 5.2 % (4.1-12.4) Eosinophils (%) (Auto) 1.5 % (0.4-6.7) Basophils (%) (Auto) 0.8 % (0.3-1.4) Nucleated RBC Relative Count (auto) 0.0 /100WBC Neutrophils # (Auto) 6.1 K/uL (2.0-7.4) Lymphocytes # (Auto) 0.8 K/uL (1.3-3.6) Monocytes # (Auto) 0.4 K/uL (0.3-1.0) Eosinophils # (Auto) 0.1 K/uL (0.0-0.5) Basophils # (Auto) 0.1 K/uL (0.0-0.1) Nucleated RBC Absolute Count (auto) 0.00 K/uL D-Dimer Quantitative (PE/DVT) 1.30 ug/ml (0-0.50) Glomerular Filtration Rate Calc > 60.0 Lactate 2.3 mmol/L (0.7-2.1) Calcium Level 9.1 mg/dl (8.4-10.2) Total Bilirubin 0.9 mg/dl (0.2-1.3) Aspartate Amino Transf (AST/SGOT) 22 U/L (0-35) Alanine Aminotransferase (ALT/SGPT) 25 U/L (0-56) Alkaline Phosphatase 70 U/L (0-126) Troponin I < 0.012 ng/ml B-Type Natriuretic Peptide 56 pg/ml (0-100) Total Protein 6.8 g/dl (6.3-8.2) Albumin 3.8 g/dl (3.5-5.0) Blood Gas Puncture Site Left radial Blood Gas Patient Temperature 98.5 DEGREES Arterial Blood pH 7.33 (7.35-7.45) Arterial Blood Partial Pressure CO2 82 mmHg (32-37) Arterial Blood Partial Pressure O2 62 mmHg (60-80) Arterial Blood HCO3 43 mmol/L (20-26) Arterial Blood Oxygen Saturation 88 % (92-100) Arterial Blood Base Excess 17.0 mmol/L Matt Test Acceptable Oxygen Liters/Minute 80 Coagulation Test 03/22/18 13:14 D-Dimer Quantitative (PE/DVT) 1.30 ug/ml EKG/Imaging Imaging CT CTA CHEST W & W/O CON HISTORY: Fall, shortness of breath, elevated d-dimer ADDITIONAL HISTORY: None. TECHNIQUE: CTA chest with intravenous contrast. Axial imaging acquired following administration of IV contrast timed for maximum opacification of the pulmonary arterial vasculature. Slab 3-D MIP reconstructed images were also created for further evaluation and interpretation. Reconstruction of the source data set includes multiplanar 2-D in the sagittal and coronal planes and 3-D reconstructed coronal slab MIP series. 3-D images were created by the technologist.Dose Lowering Technique One of the following dose optimization techniques was utilized in the performance of this exam: Automated exposure control; adjustment of the mA and/or kV according to the patient's size; or use of an iterative reconstruction technique. Specific details can be referenced in the facility's radiology CT exam operational policy. CONTRAST: 75 mL Isovue-370 COMPARISON: The 2017 FINDINGS: Lungs/pleura: there is a small right pleural effusion that appears relatively unchanged when compared to the prior study. Right basilar airspace consolidation appears relatively unchanged. There has been partial decrease in small left pleural effusion and partial decrease in the left basilar airspace consolidation Chronic airspace consolidation the anterior right middle lobe and lingula again seen Diffuse emphysematous changes again seen throughout the lungs. The previous 7 x 4 mm nodule in the anterior superior aspect right lower lobe abutting the major fissure is slightly increased in size and now measures 7 x 7 mm and is best seen on image 173 of series 10. There is an additional 1.9 x 1.4 cm irregular nodule posterior segment of the right upper lobe abutting the major fissure best seen on image 163 of series 10. This nodule previously measured 1.2 x 1 cm. There is a new 6 mm nodule anterolateral aspect right lower lobe best seen on image 271. There is a new 2 mm subpleural nodule lateral aspect of the right lower lobe best seen on image 169 There is 1.2 x 0.8 cm pleural-based nodule posterior aspect the right lower lobe best seen on image 228 that appears unchanged There is an 8 mm subpleural nodule posterior aspect of the left lower lobe best seen on image 189 previously measuring 3 mm Heart/vessels: No definite evidence of pulmonary emboli identified. The peripheral subsegmental arterial branches are not ideally opacified with contrast. Mediastinum/lymph nodes: Mediastinal, retrocrural and hilar adenopathy appears relatively unchanged Visualized upper abdomen: Nodular thickening the adrenal glands appears relatively unchanged. Bones/soft tissues: There spondylotic changes of the thoracic spine Additional findings: None IMPRESSION: No gross evidence of pulmonary emboli although the distal subsegmental arterial branches are not ideally opacified with contrast The mediastinal retrocrural and hilar adenopathy appears relatively unchanged There increasing bilateral pulmonary nodules concerning for metastatic process Small right pleural effusion and right basilar airspace consolidation appears relatively unchanged There is partial decrease in small left pleural effusion and left basilar airspace consolidation Diffuse emphysematous changes are again seen throughout the lungs Report Dictated By: Juliana Huynh MD at 03/22/2018 3:14 PM Report E-Signed By: Juliana Huynh MD at 03/22/2018 3:34 PM ED Course/Re-evaluation ED Course Patient was admitted to an exam room, history and physical were obtained. Differential diagnoses were considered. On examination lungs are very dimi nished, heart is regular, abdomen soft nontender. An IV was started, a CBC, CMP, troponin, EKG, d-dimer were done. CBC showed no elevated white count, CMP showed an elevated carbon dioxide. I did review all labs and found that her carbon dioxide typically did run around 40 which is where she is at today. An ABG was done which showed a CO2 of 80. Again I reviewed previous labs and found that that was typical for her. Patient received a breathing treatment, 9 mL of DuoNeb. She took that continuously. That did seem to help open her up, she was able to saturate in the mid 90s. Patient switched back over to a nonrebreather and she was able to maintain her oxygen saturation saturations at 93-94% on 10 L. The d-dimer came back elevated at 1.3. As a result a CT pulmonary angiogram was done. That showed no pulmonary emboli, and showed no acute findings. At that time I did try to wean her off of the oxygen. I put her on a nasal cannula at 6 L. She is able tolerate that for about 10 minutes and then she desats down to 83%. We placed her back on the nonrebreather on 10 L and she'll return to 94%. At that time I felt that it be best to go ahead and admit the patient. I discussed her case with Dr. Bello, hospitalist, who agreed to accept the patient for admission with diagnosis of COPD exacerbation and hypoxia. Decision to Disposition Date: Mar 22, 2018 Decision to Disposition Time: 16:18 Depart Departure Latest Vital Signs Vital Signs Date Time Temp Pulse Resp B/P (MAP) Pulse Ox O2 Delivery O2 Flow Rate FiO2 03/22/18 16:00 128/115 (119) 03/22/18 15:37 81 18 93 03/22/18 13:21 Non-Rebreather 15.0 Impression: Primary Impression: COPD exacerbation Additional Impression: Hypoxia Condition: Condition Unchanged Disposition: Admitted from ER Referrals: BRIAN GO DO (PCP) Problem Qualifiers CHERELLE FOREMAN Mar 22, 2018 13:17
[2018-03-22 13:22] LABS: PLATELET COUNT, AUTOMATED 242 K/uL (150-450)
--- NOTE | 2018-03-22 13:40 | EKG ---
[place] [facility] [place] NAME: KEON FORBES : [id number] MR: [id number] V: [id number] EXAM DATE: ORDERING PHYSICIAN: CHERELLE FOREMAN TECHNOLOGIST: Test Reason : SOB Blood Pressure : / mmHG Vent. Rate : 079 BPM Atrial Rate : 079 BPM P-R Int : 138 ms QRS Dur : 086 ms QT Int : 390 ms P-R-T Axes : 025 124 057 degrees QTc Int : 447 ms Normal sinus rhythm Right ventricular hypertrophy Septal infarct (cited on or before 04-AUG-2012) Abnormal ECG When compared with ECG of 25-NOV-2017 09:42, premature atrial complexes are no longer present Confirmed by LUCA BELLO ([id number]) on 03/23/2018 6:07:16 AM Referred By: Confirmed By:LUCA BELLO
[2018-03-22] MEDS ORDERED: IOPAMIDOL 76% 150 ML INFUS BTL 150 ML ONE (13:52)
[2018-03-22] MEDS ORDERED: NS(*) 0.9% 50 ML BAG 50 ML ONE (13:52)
--- NOTE | 2018-03-22 15:39 | RADIOLOGY IMAGING REPORT ---
FACILITY: [facility] PATIENT NAME: Anne Watkins : 1955 MR: [id number] V: [id number] EXAM DATE: ORDERING PHYSICIAN: CHERELLE FOREMAN TECHNOLOGIST: Location: [facility] Patient: Anne Watkins : 1955 Visit/Account:[id number] Date of Sevice: 03/22/2018 CT CTA CHEST W & W/O CON HISTORY: Fall, shortness of breath, elevated d-dimer ADDITIONAL HISTORY: None. TECHNIQUE: CTA chest with intravenous contrast. Axial imaging acquired following administration of IV contrast timed for maximum opacification of the pulmonary arterial vasculature. Slab 3-D MIP phyllis nstructed images were also created for further evaluation and interpretation. Reconstruction of the s [facility] data set includes multiplanar 2-D in the sagittal and coronal planes and 3-D reconstructed sandip nal slab MIP series. 3-D images were created by the technologist.Dose Lowering Technique One of the following dose optimization techniques was utilized in the performance of this exam: Autom ated exposure control; adjustment of the mA and/or kV according to the patient's size; or use of an i terative reconstruction technique. Specific details can be referenced in the facility's radiology C T exam operational policy. CONTRAST: 75 mL Isovue-370 COMPARISON: The 2017 FINDINGS: Lungs/pleura: there is a small right pleural effusion that appears relatively unchanged when compare d to the prior study. Right basilar airspace consolidation appears relatively unchanged. There has been partial decrease in small left pleural effusion and partial decrease in the left basilar airspac e consolidation Chronic airspace consolidation the anterior right middle lobe and lingula again seen Diffuse emphysematous changes again seen throughout the lungs. The previous 7 x 4 mm nodule in the anterior superior aspect right lower lobe abutting the major fiss ure is slightly increased in size and now measures 7 x 7 mm and is best seen on image 173 of series 1 0. There is an additional 1.9 x 1.4 cm irregular nodule posterior segment of the right upper lobe abutti ng the major fissure best seen on image 163 of series 10. This nodule previously measured 1.2 x 1 cm . There is a new 6 mm nodule anterolateral aspect right lower lobe best seen on image 271. There is a new 2 mm subpleural nodule lateral aspect of the right lower lobe best seen on image 169 There is 1.2 x 0.8 cm pleural-based nodule posterior aspect the right lower lobe best seen on image 2 28 that appears unchanged There is an 8 mm subpleural nodule posterior aspect of the left lower lobe best seen on image 189 pre viously measuring 3 mm Heart/vessels: No definite evidence of pulmonary emboli identified. The peripheral subsegmental art erial branches are not ideally opacified with contrast. Mediastinum/lymph nodes: Mediastinal, retrocrural and hilar adenopathy appears relatively unchanged Visualized upper abdomen: Nodular thickening the adrenal glands appears relatively unchanged. Bones/soft tissues: There spondylotic changes of the thoracic spine Additional findings: None IMPRESSION: No gross evidence of pulmonary emboli although the distal subsegmental arterial branches are not idea lly opacified with contrast The mediastinal retrocrural and hilar adenopathy appears relatively unchanged There increasing bilateral pulmonary nodules concerning for metastatic process Small right pleural effusion and right basilar airspace consolidation appears relatively unchanged There is partial decrease in small left pleural effusion and left basilar airspace consolidation Diffuse emphysematous changes are again seen throughout the lungs Report Dictated By: Juliana Huynh MD at 03/22/2018 3:14 PM Report E-Signed By: Juliana Huynh MD at 03/22/2018 3:34 PM RAZN:ELLEN
--- NOTE | 2018-03-22 16:47 | RADIOLOGY IMAGING REPORT ---
FACILITY: [facility] PATIENT NAME: Anne Watkins : 1955 MR: [id number] V: [id number] EXAM DATE: ORDERING PHYSICIAN: CHERELLE FOREMAN TECHNOLOGIST: Location: [facility] Patient: Anne Watkins : 1955 Visit/Account:[id number] Date of Sevice: 03/22/2018 INDICATION: fall, knee pain. DATE: 03/22/2018 4:42 PM. TECHNIQUE: KNEE 4 VIEW LEFT COMPARISON: None FINDINGS: Degenerative findings are markedly severe in the medial and lateral compartments and modera te to severe in the patellofemoral compartment. There is a small knee joint effusion. No acute osse ous abnormality. IMPRESSION: Tricompartmental degenerative findings are severe in the medial and lateral compartments. Report Dictated By: Triston Melchor MD at 03/22/2018 4:42 PM Report E-Signed By: Triston Melchor MD at 03/22/2018 4:44 PM WSN:[id number]
[2018-03-22 17:05] VITALS: BP 110/74
[2018-03-22] MEDS ORDERED: ALBUTEROL 2.5 MG/3 ML NEB NEB PRN (17:35)
--- NOTE | 2018-03-22 17:44 | History & Physical ---
History of Present Illness Chief Complaint Fall History of Present Illness This patient presented to the emergency room after a fall. She does not report any injury, but did have to call EMS for assistance getting up. When EMS arrived she was noted to have a saturation of 50%, and she was brought to the emergency room for further evaluation. She denies any significant worsening in her respiratory status. History Problems: (1) COPD (chronic obstructive pulmonary disease) with chronic bronchitis Status: Acute (2) Hypertension Home Meds Active Scripts Prednisone 10 Mg Tab (PREDNISONE 10 MG TAB) 10 Mg Tablet, 10 MG PO DIRECTED, #30 TAB Take 4 tab daily x 3 days, then 3 tab daily x 3 days, then 2 tab daily x 3 days, then 1 tab daily x 3 days. Prov:LUCA BELLO DO 11/30/17 Ipratropium/Albuterol Sulfate (IPRAT-ALBUT 0.5-3(2.5) MG/3 ML) 3 Ml Ampul.neb, 3 ML NEB QIDR, #30 VIAL Prov:LUCA BELLO DO 11/30/17 Albuterol Sulfate 0.083% (ALBUTEROL SULFATE 0.083%) 2.5 Mg/3 Ml Vial.neb, 2.5 MG NEB Q2HR PRN for WHEEZING/SHORTNESS OF BREATH, #30 VIAL Prov:EUGENIALUCA DO 11/30/17 Reported Medications Simvastatin (SIMVASTATIN) 20 Mg Tablet, 10 MG PO HS, TAB 11/25/17 Triamterene/Hydrochlorothiazid (DYAZIDE 37.5-25 CAPSULE) 1 Each Capsule, 1 EACH PO DAILY, #30 0 Refills For blood pressure and leg swelling 08/07/12 Amlodipine Besylate (AMLODIPINE BESYLATE) 10 Mg Tablet, 1 TAB PO QDAY, 0 Refills 08/07/12 Allergies: Coded Allergies: latex (Verified Allergy, Unknown, EYE REACTION, 03/22/18) Patient History: Patient reports no known family medical history. Hx Smoking: Yes Smoking Status: Current: Every Day Smoker Caffeine Intake: Coffee Caffeine/Cups Per Day: 6 Hx Alcohol Use: Yes (1-2 drinks/day) Alcohol Used: Liquor Hx Substance Use Disorder: No Review of Systems All Systems Reviewed/Normal: Yes Exam Vital Signs Vital Signs Date Time Temp Pulse Resp B/P (MAP) Pulse Ox O2 Delivery O2 Flow Rate FiO2 03/22/18 17:05 99.3 80 20 110/74 (86) 88 Nasal Cannula 15.0 Neuro: No Gross deficits Eyes: PERRLA Cardiovascular: Regular Rate and Rhythm Respiratory: Clear to Auscultation GI: Abd Soft and Non-Tender Extremities: No Edema Integumentary: No Cyanosis Medical Decision Making Data Points Result Diagram: 03/22/18 1314 03/22/18 1314 Assessment and Plan Problems: (1) COPD exacerbation Assessment & Plan: She was found to have an increased oxygen requirement. She has been started on nebulizers and steroids. (2) Pulmonary nodule Assessment & Plan: Her chest CT continues to show mediastinal and hilar lymphadenopathy. She also has increasing pulmonary nodules, which are concerning for malignancy. She will need to have arrangements made for biopsy. (3) Essential hypertension Assessment & Plan: She is on chronic treatment with amlodipine and Dyazide. Copies to: BRIAN GO DO ; Venous Thromboembolism Antithrombotics Is Pt On Any Antithrombotics?: No Exam Sepsis Risk: No Definite Risk LUCA BELLO DO Mar 22, 2018 17:44
[2018-03-22] MEDS ORDERED: TRIA-20 PO (17:50)
[2018-03-22] MEDS ORDERED: SIMV10TA98 PO (17:50)
[2018-03-22] MEDS: ALBUTEROL 2.5 MG/3 ML NEB NEB SCH (18:20)
[2018-03-22 19:42] VITALS: BP 102/56
[2018-03-22] MEDS: methylPREDNIS SUCC 125 MG/2ML IVP SCH (20:11)
[2018-03-23 02:26] VITALS: BP 112/54
[2018-03-23] MEDS: methylPREDNIS SUCC 125 MG/2ML IVP SCH ×4 (02:26→20:27)
[2018-03-23] MEDS: ALBUTEROL 2.5 MG/3 ML NEB NEB SCH (05:31)
[2018-03-23 06:25] LABS: PLATELET COUNT, AUTOMATED 214 K/uL (150-450)
[2018-03-23 07:48] VITALS: BP 121/55
[2018-03-23] MEDS: TRIAMTERENE/HCTZ 37.5-25MG CAPSULE PO SCH (08:54)
[2018-03-23] MEDS: amLODIPine BESYL(*) 5 MG TAB PO SCH (08:54)
[2018-03-23] MEDS: ALBUTEROL/IPRATROPIUM 3 ML NEB NEB SCH ×3 (11:00→16:54)
[2018-03-23] MEDS ORDERED: NS(*) 0.9% 500 ML BAG 500 ML IV PRN (11:05)
[2018-03-23] MEDS: AZITHROMYCIN(*) 500 MG 500 MG in NS(*) 0.9% 250 ML BAG 250 ML IVPB SCH (11:31)
[2018-03-23 12:05] VITALS: BP 126/81
--- NOTE | 2018-03-23 15:18 | Hospitalist Progress Note ---
Subjective Progress Notes Subjective She reports that her WOB is about the same. She is on a NRB, but was on BiPAP without problems. Physical Exam Vital Signs Date Time Temp Pulse Resp B/P (MAP) Pulse Ox O2 Delivery O2 Flow Rate FiO2 03/23/18 13:18 85 20 03/23/18 13:18 93 Bi-PAP 90.0 03/23/18 12:05 126/81 (96) 03/23/18 08:10 15.0 03/23/18 07:48 97.6 Intake and Output 03/23/18 07:00 # Voids 4 # Bowel Movements 1 General Appearance: Alert, Awake, Other (Mild wob) Cardiovascular: Regular Rate and Rhythm Respiratory: Other (Decreased air movement to bases.) Integumentary: No Jaundice, No Cyanosis Result Diagram: 03/23/1860403/23/18604 Assessment and Plan Problems: (1) COPD exacerbation Assessment & Plan: EMS evaluated her after a fall and she was found to have a much increased oxygen requirement. She has been struggling with worsening SOB for many months and is on 5 liters of O2 at baseline. She is on 15 liters via NRB mask. She was started on nebulizers and steroids. Azithromycin added today. Will try flutter therapy and place her on BIPAP. (2) Pulmonary nodule Assessment & Plan: Her chest CT continues to show mediastinal and hilar lymphadenopathy. She also has multiple pulmonary nodules, which are increasing in size concerning for malignancy. I spoke with the Nurse Practitioner from the Cancer Center. She didn't recommend any further work up in the hospital, but recommended close follow up in the Cancer Center. Dr. Darling has the earliest availability. (3) Essential hypertension Assessment & Plan: She is on chronic treatment with amlodipine and Dyazide. Exam Sepsis Risk: No Definite Risk MALLORY DAS MD Mar 23, 2018 15:18
[2018-03-23 15:27] VITALS: BP 109/67
[2018-03-23 20:24] VITALS: BP 114/69
[2018-03-24 02:31] VITALS: BP 103/58
[2018-03-24] MEDS: methylPREDNIS SUCC 125 MG/2ML IVP SCH ×4 (02:31→19:45)
[2018-03-24] MEDS: ALBUTEROL/IPRATROPIUM 3 ML NEB NEB SCH ×4 (05:36→16:54)
[2018-03-24 07:08] LABS: PLATELET COUNT, AUTOMATED 213 K/uL (150-450)
[2018-03-24 08:20] VITALS: BP 131/79
[2018-03-24] MEDS: TRIAMTERENE/HCTZ 37.5-25MG CAPSULE PO SCH (08:23)
[2018-03-24] MEDS: amLODIPine BESYL(*) 5 MG TAB PO SCH (08:23)
--- NOTE | 2018-03-24 10:45 | NUR ---
Physical Therapy Impression PT/OT co eval complete. Pt fairly impulsive with mobility, Lamont to sit at EOB with HOB raised and use of railing. RN present for visit. While sitting at EOB, SpO2 was 83% on 15L via oxymask, RN donned oxymask and nasal canula (both 15L) prior to mobility. PT instructed patient in use of RW with proper sequencing and safety encouraged. Pt completed STS transfer with 2-3 steps of forward ambulation prior to step pivot transfer to w/c. Pt completed mobility with CGA and RW. Once in chair, SPO2 stayed at 85% on NC and oxymask. RN donned non-rebreather mask at 15L and SpO2 returned to 89%. PT and OT left pt with RN, up in w/c. Pt reports that she was asymptomatic throughout session. Recommendation pending progress, likely d/c with [facility] services. Physical Therapy Goals 1: Pt to complete bed mobility with Lamont and HOB flat. 2: Pt to complete transfers with SBA and use of RW 3: Pt to ambulate 25' SBA and use of RW, with SPO2 WNL Patient's Goals
[2018-03-24] MEDS: AZITHROMYCIN(*) 500 MG 500 MG in NS(*) 0.9% 250 ML BAG 250 ML IVPB SCH (10:59)
[2018-03-24 12:44] VITALS: BP 112/63
--- NOTE | 2018-03-24 13:53 | NUR ---
Occupational Therapy Impression OT/PT evaluation completed. Pt. would benefit from OT services 5x/week to increase independence in ADL's. Occupational Therapy Goals 1. Pt. to recall 3 EC/WS techniques to be implemented daily. 2. Pt. to perform dressing activities with Min A. 3. Pt. to perform toileting activities with Min A. 4. Pt. to perform grooming activities with I. 5. Pt. to acquire necessary DME for home. Patient's Goal
--- NOTE | 2018-03-24 14:40 | Hospitalist Progress Note ---
Subjective Progress Notes Subjective She reports improvements in her dyspnea. She still has rather high oxygen requirement. Physical Exam Vital Signs Date Time Temp Pulse Resp B/P (MAP) Pulse Ox O2 Delivery O2 Flow Rate FiO2 03/24/18 13:06 75 18 03/24/18 13:00 90.0 03/24/18 13:00 93 Bi-PAP 03/24/18 12:44 98.7 112/63 (79) 03/24/18 09:00 15.0 Intake and Output 03/24/18 07:00 Intake Total 786 ml Balance 786 ml Intake Oral 526 ml IV Total 260 ml # Voids 8 General Appearance: Alert, Awake Cardiovascular: Regular Rate and Rhythm Respiratory: Other (diminished breath sounds throughout with soft expiratory wheezes) GI: Soft and Non-Tender Extremities: Warm, Perfused Psych: Alert & Oriented X3 Result Diagram: 03/24/18 0554 03/24/18 0554 Assessment and Plan Problems: (1) COPD exacerbation Assessment & Plan: EMS evaluated her after a fall and she was found to have hypoxia with significantly increased oxygen requirement. She has been struggling with worsening SOB for many months and is on 5 liters of O2 at baseline. She is on high flow O2 at upwards of 12-15L. She has been started on nebulizers and steroids. Azithromycin was also added yesterday. Will continue flutter therapy and BIPAP. (2) Pulmonary nodule Assessment & Plan: Her chest CT continues to show mediastinal and hilar lymphadenopathy. She also has multiple pulmonary nodules, which are increasing in size concerning for malignancy. Dr. Darling will be seeing her today. Further evaluation pending his recommendations. (3) Essential hypertension Assessment & Plan: She is on chronic treatment with amlodipine and Dyazide. Exam Sepsis Risk: No Definite Risk TRI CARTER MD Mar 24, 2018 14:39
[2018-03-24] MEDS ORDERED: IOPAMIDOL 76% 150 ML INFUS BTL 150 ML ONE (15:05)
--- NOTE | 2018-03-24 16:05 | RADIOLOGY IMAGING REPORT ---
FACILITY: [facility] [place] PATIENT NAME: Anne Watkins : 1955 MR: [id number] V: [id number] EXAM DATE: ORDERING PHYSICIAN: AMELIA BALDWIN TECHNOLOGIST: Location: [facility] Patient: Anne Watkins : 1955 Visit/Account:[id number] Date of Sevice: 03/24/2018 EXAMINATION: CT abdomen and pelvis with IV contrast HISTORY: Lung nodules. Possible metastatic disease. TECHNIQUE: Axial CT images of the abdomen and pelvis were obtained with IV contrast, with coronal a nd sagittal 2D reconstructed images. One of the following dose optimization techniques was utilized in the performance of this exam: Autom ated exposure control; adjustment of the mA and/or kV according to the patient's size; or use of an i terative reconstruction technique. Specific details can be referenced in the facility's radiology C T exam operational policy. Contrast: 75 mL of IV Isovue-370. COMPARISON: CTA chest with contrast 03/22/2018. FINDINGS: Liver: Negative. Gallbladder and bile ducts: Negative. Spleen: Negative. Normal spleen size, measuring 9.7 cm in length. Pancreas: Negative. Adrenal glands: There is mild low-density thickening of the left adrenal gland without any discrete well-defined adrenal nodule. This may relate to adenomatous change or hyperplasia. The right adrena l gland is grossly unremarkable. Kidneys: Mildly dysmorphic appearance of the right kidney ectopically located within the upper right pelvis. The kidneys enhance normally. No evidence of any focal renal mass. No hydronephrosis or u rinary calculi. Bowel and peritoneum: The small bowel and colon are normal in caliber. Scattered colonic diverticul osis. No free fluid or free intraperitoneal air. Small hiatal hernia. Pelvic structures: Uterus has a slightly lobular contour with likely small fibroids. No large ad nexal cyst in the pelvis. Lymph node assessment: An enlarged right retrocrural lymph node measures 1.7 x 1.4 cm (series 2, larry ge 38). No other enlarged lymph nodes in the abdomen or pelvis. Vessels: Mild vascular calcifications. Normal caliber abdominal aorta. Musculoskeletal: Chronic multilevel degenerative changes throughout the spine. No acute osseous fi ndings or suspicious focal osseous lesions. Body wall: Small bilateral fat-containing inguinal hernias. Lung bases: Trace bilateral pleural effusions appear grossly stable with adjacent bibasilar consolid ation. IMPRESSION: 1. Indeterminate enlarged right retrocrural lymph node measuring 1.4 cm. No other enlarged lymph no surjit in the abdomen or pelvis. 2. No other specific CT evidence of malignancy in the abdomen or pelvis. 3. Other nonacute findings as described above. Report Dictated By: Darrian James MD at 03/24/2018 3:50 PM Report E-Signed By: Darrian James MD at 03/24/2018 3:59 PM WSN:[id number]
[2018-03-24 17:16] VITALS: BP 120/74
[2018-03-24] MEDS ORDERED: INFLUENZA VIRUS VAC 0.5ML SYR IM ONLY ONE (17:35)
[2018-03-24 23:37] VITALS: BP 130/70
[2018-03-25] MEDS: methylPREDNIS SUCC 125 MG/2ML IVP SCH (02:14)
[2018-03-25 02:27] VITALS: BP 134/79
[2018-03-25] MEDS: ALBUTEROL/IPRATROPIUM 3 ML NEB NEB SCH ×4 (05:34→17:42)
[2018-03-25 06:09] LABS: PLATELET COUNT, AUTOMATED 218 K/uL (150-450)
[2018-03-25 07:54] VITALS: BP 126/84
--- NOTE | 2018-03-25 09:10 | Hospitalist Progress Note ---
Subjective Progress Notes Subjective This patient was admitted for COPD. She had no acute changes overnight. Patient Complains of: Cardiovascular: No: Chest Pain Respiratory: No: Shortness of Breath Physical Exam Vital Signs Date Time Temp Pulse Resp B/P (MAP) Pulse Ox O2 Delivery O2 Flow Rate FiO2 03/25/18 08:00 83 High-Flow Nasal Cannula 9.0 03/25/18 07:54 98.8 82 18 126/84 (98) 03/24/18 19:59 90.0 Intake and Output 03/25/18 07:00 Intake Total 1494 ml Balance 1494 ml Intake Oral 1220 ml IV Total 274 ml # Voids 10 Cardiovascular: Regular Rate and Rhythm Respiratory: Clear to Auscultation Result Diagram: 03/25/1852303/25/18523 Assessment and Plan Problems: (1) COPD exacerbation Assessment & Plan: EMS evaluated her after a fall and she was found to have hypoxia with significantly increased oxygen requirement. She has been struggling with worsening SOB for many months and is on 5 liters of O2 at baseline. She has been started on nebulizers and steroids. Azithromycin was also added yesterday. (2) Pulmonary nodule Assessment & Plan: Her chest CT continues to show mediastinal and hilar lymphadenopathy. She also has multiple pulmonary nodules, which are increasing in size concerning for malignancy. She was evaluated by the cancer center and a work up is pending. (3) Essential hypertension Assessment & Plan: She is on chronic treatment with amlodipine and Dyazide. Exam Sepsis Risk: No Definite Risk LUCA BELLO DO Mar 25, 2018 09:10
[2018-03-25] MEDS: AZITHROMYCIN 250 MG TAB PO SCH (09:42)
[2018-03-25] MEDS: TRIAMTERENE/HCTZ 37.5-25MG CAPSULE PO SCH (09:42)
[2018-03-25] MEDS: amLODIPine BESYL(*) 5 MG TAB PO SCH (09:42)
[2018-03-25] MEDS: predniSONE 20 MG TAB PO SCH (09:42)
[2018-03-25 11:26] VITALS: BP 118/73
--- NOTE | 2018-03-25 12:26 | Antimicrobial Stewardship ---
Antimicrobial Stewardship Empiricly appropriate: Yes Significant PMH: Yes (COPD, current smoker) Support empiric regimen: Yes Approriate Cultures done: Yes (Blood Cx x 2, NGTD) Reviewed for Drug Interaction: Yes IV to PO Opportunity: Yes Determine cumulative duration: Today is day 3 Determine standard duration: 5 days total Comment 62 yo F who presented s/p fall, found to have low oxygen sats. Her history is significant for COPD, current smoker, CHF, HTN, arthritis, and alcohol use. WBC wnl Low grade temp 99.7max CTA (-) PE, scattered pulmonary nodules, (+) adenopathy Blood Cx x 2 - NGTD Plan to treat with azithromycin 500mg po daily x 5 days for COPD exacerbation. Will continue to follow closely. Erika Rogers, PharmD, OP ERIKA ROGERS Mar 25, 2018 12:26
--- NOTE | 2018-03-25 13:07 | NUR ---
Physical Therapy Impression Pt seen from [id number] with OT for a co-tx. Not enough time for PT to bill. Please see OT notes for details. Pt functionally safe for DC when medically appropriate. Physical Therapy Goals 1: Pt to complete bed mobility with Lamont and HOB flat. 2: Pt to complete transfers with SBA and use of RW 3: Pt to ambulate 25' SBA and use of RW, with SPO2 WNL Patient's Goals
[2018-03-25 14:36] VITALS: BP 119/73
[2018-03-25 20:09] VITALS: BP 114/74
[2018-03-26 02:33] VITALS: BP 123/77
[2018-03-26] MEDS: ALBUTEROL/IPRATROPIUM 3 ML NEB NEB SCH ×4 (05:55→17:11)
[2018-03-26 06:09] LABS: PLATELET COUNT, AUTOMATED 199 K/uL (150-450)
[2018-03-26 07:27] VITALS: BP 125/86
[2018-03-26] MEDS: TRIAMTERENE/HCTZ 37.5-25MG CAPSULE PO SCH (09:03)
[2018-03-26] MEDS: amLODIPine BESYL(*) 5 MG TAB PO SCH (09:03)
[2018-03-26] MEDS: predniSONE 20 MG TAB PO SCH (09:03)
[2018-03-26] MEDS: AZITHROMYCIN 250 MG TAB PO SCH (09:03)
[2018-03-26 11:19] VITALS: BP 108/64
--- NOTE | 2018-03-26 12:46 | NUR ---
Physical Therapy Impression Pt safe for DC when medically appropriate. Physical Therapy Goals 1: Pt to complete bed mobility with Lamont and HOB flat. 2: Pt to complete transfers with SBA and use of RW 3: Pt to ambulate 25' SBA and use of RW, with SPO2 WNL Patient's Goals
--- NOTE | 2018-03-26 13:19 | Hospitalist Progress Note ---
Subjective Progress Notes Subjective She reports feeling less dyspneic. Still drops O2 saturations very easily with even low levels of activity. Physical Exam Vital Signs Date Time Temp Pulse Resp B/P (MAP) Pulse Ox O2 Delivery O2 Flow Rate FiO2 03/26/18 11:19 99.3 80 24 108/64 (79) 89 High-Flow Nasal Cannula 12.0 03/26/18 02:33 90.0 Intake and Output 03/26/18 07:00 Intake Total 1010 ml Balance 1010 ml Intake Oral 1010 ml # Voids 6 General Appearance: Alert, Awake Cardiovascular: Regular Rate and Rhythm Respiratory: Other (diminished breath sounds bilaterally no wheezes noted at this time) GI: Soft and Non-Tender Extremities: Warm, Perfused Psych: Alert & Oriented X3 Result Diagram: 03/26/1855703/26/18557 Assessment and Plan Problems: (1) COPD exacerbation Status: Acute Assessment & Plan: EMS evaluated her after a fall and she was found to have hypoxia with significantly increased oxygen requirement. She had been struggl ing with worsening SOB for many months. She is on 5 liters of O2 at baseline. Her CT pulmonary angiogram is negative for PE, but did show emphysematous changes and some pulmonary nodules/hilar adenopathy (see below). It also showed possible bibasilar inflammatory/infectious findings. She has been started on nebulizer therapy, steroids, and azithromycin. She has made some improvements, albeit rather slowly. (2) Pulmonary nodule Status: Chronic Assessment & Plan: Her chest CT continues to show mediastinal and hilar lymphadenopathy. She also has multiple pulmonary nodules, which are increasing in size concerning for malignancy. She was evaluated by the [facility] (Dr. J Carlos Neal) and a work up is in process. CT scan of abdomen and pelvis unremarkable. Tumor markers pending. MRI of brain on Wednesday if feasible. (3) Essential hypertension Status: Chronic Assessment & Plan: She is on chronic treatment with amlodipine and Dyazide. Exam Sepsis Risk: No Definite Risk TRI CARETR MD Mar 26, 2018 13:19
[2018-03-26 14:40] VITALS: BP 115/67
[2018-03-26 19:40] VITALS: BP 111/63
[2018-03-27] MEDS: ALBUTEROL/IPRATROPIUM 3 ML NEB NEB SCH ×4 (05:41→18:00)
[2018-03-27 07:57] VITALS: BP 114/75
[2018-03-27] MEDS: AZITHROMYCIN 250 MG TAB PO SCH (08:56)
[2018-03-27] MEDS: amLODIPine BESYL(*) 5 MG TAB PO SCH (08:56)
[2018-03-27] MEDS: predniSONE 20 MG TAB PO SCH (08:56)
[2018-03-27] MEDS: TRIAMTERENE/HCTZ 37.5-25MG CAPSULE PO SCH (08:56)
[2018-03-27 11:38] VITALS: BP 103/68
--- NOTE | 2018-03-27 13:29 | Hospitalist Progress Note ---
Subjective Progress Notes Subjective The patient denies new complaints. She has not been compliant with the BiPAP. She does not like wearing the mask. Physical Exam Vital Signs Date Time Temp Pulse Resp B/P (MAP) Pulse Ox O2 Delivery O2 Flow Rate FiO2 03/27/18 11:38 98.5 72 21 103/68 (80) 92 Bi-PAP 7.1 90.0 Intake and Output 03/27/18 07:00 Intake Total 960 ml Balance 960 ml Intake Oral 960 ml # Voids 9 # Bowel Movements 3 General Appearance: Alert, Awake, Other (Lips are purple/blue. Appears older than her stated age.) Neuro: No Gross deficits Cardiovascular: Regular Rate and Rhythm, No Edema Respiratory: Other (Mild increased work of breathing. Markedly decreased BS throughout on ausculatation.) GI: Soft and Non-Tender Extremities: Warm, Other (Chronic venous stasis changes.) Integumentary: Skin Intact without Lesion / Mass Psych: Alert & Oriented X3, Appropriate Mood & Affect Result Diagram: 03/26/1855703/26/18557 Assessment and Plan Problems: (1) COPD exacerbation Status: Acute Assessment & Plan: EMS evaluated her after a fall and she was found to have hypoxia with significantly increased oxygen requirement. She had been struggling with worsening SOB for many months. She is on 5 liters of O2 at baseline. Her CT pulmonary angiogram is negative for PE, but did show emphys ematous changes and some pulmonary nodules/hilar adenopathy (see below). It also showed possible bibasilar inflammatory/infectious findings. She has been started on nebulizer therapy, steroids, and azithromycin. She has made some improvements, albeit rather slowly. She continues to have CO2 retention. She has not been able to wear BiPAP for long as she doesn't tolerate the mask well. Did discuss the benefits of wearing the mask especially overnight. (2) Pulmonary nodule Status: Chronic Assessment & Plan: Her chest CT continues to show mediastinal and hilar lymphadenopathy. She also has multiple pulmonary nodules, which are increasing in size concerning for malignancy. She was evaluated by the [facility] (Dr. J Carlos Neal) and a work up is in process. CT scan of abdomen and pelvis unremarkable. Tumor markers pending. MRI of brain on Wednesday if feasible. (3) Essential hypertension Status: Chronic Assessment & Plan: She is on chronic treatment with amlodipine and Dyazide. Time Spent on Plan of Care: < 30 min Exam Sepsis Risk: No Definite Risk АННА CARTER MD Mar 27, 2018 13:29
[2018-03-27 15:14] VITALS: BP 112/68
[2018-03-27 18:56] VITALS: BP 100/52
[2018-03-28] MEDS: ALBUTEROL/IPRATROPIUM 3 ML NEB NEB SCH ×4 (05:11→17:00)
[2018-03-28 05:46] VITALS: BP 105/68
[2018-03-28 06:01] LABS: PLATELET COUNT, AUTOMATED 178 K/uL (150-450)
[2018-03-28 08:17] VITALS: BP 109/71
[2018-03-28] MEDS: predniSONE 20 MG TAB PO SCH (08:20)
[2018-03-28] MEDS: TRIAMTERENE/HCTZ 37.5-25MG CAPSULE PO SCH ×2 (08:20→08:24)
[2018-03-28] MEDS: amLODIPine BESYL(*) 5 MG TAB PO SCH ×2 (08:20→08:25)
[2018-03-28] MEDS ORDERED: GADOBENATE 529MG/1ML 15ML VIAL IVP ONE (09:02)
--- NOTE | 2018-03-28 09:29 | Hospitalist Progress Note ---
Subjective Progress Notes Subjective This patient was admitted for COPD. She had no acute events overnight. Patient Complains of: Cardiovascular: No: Chest Pain Respiratory: No: Shortness of Breath Physical Exam Vital Signs Date Time Temp Pulse Resp B/P (MAP) Pulse Ox O2 Delivery O2 Flow Rate FiO2 03/28/18 08:17 99.7 75 16 109/71 (84) 87 High-Flow Nasal Cannula 15.0 03/28/18 01:00 90.0 Intake and Output 03/28/18 07:00 Intake Total 610 ml Balance 610 ml Intake Oral 610 ml # Voids 9 # Bowel Movements 1 Cardiovascular: Regular Rate and Rhythm Respiratory: Clear to Auscultation Result Diagram: 03/28/1835 03/28/18534 Assessment and Plan Problems: (1) COPD exacerbation Status: Acute Assessment & Plan: EMS evaluated her after a fall and she was found to have hypoxia with significantly increased oxygen requirement. She had been struggling with worsening SOB for many months. She is on 5 liters of O2 at baseline. Her CT pulmonary angiogram is negative for PE, but did show emphysematous changes and some pulmonary nodules/hilar adenopathy (see below). It also showed possible bibasilar inflammatory/infectious findings. She has been started on nebulizer therapy, steroids, and azithromycin. She continues to have high oxygen requirements and requires BiPAP at night. We decreased her prednisone and stopped antibiotics today. (2) Pulmonary nodule Status: Chronic Assessment & Plan: Her chest CT continues to show mediastinal and hilar lymphadenopathy. She also has multiple pulmonary nodules, which are increasing in size concerning for malignancy. She was evaluated by the [facility] (Dr. J Carlos Neal) and a work up is in process. CT scan of abdomen and pelvis unremarkable. Tumor markers are showing an elevated CEA and CA-125. MRI of brain is pending for today. (3) Essential hypertension Status: Chronic Assessment & Plan: She is on chronic treatment with amlodipine and Dyazide. Exam Sepsis Risk: No Definite Risk LUCA BELLO DO Mar 28, 2018 09:29
--- NOTE | 2018-03-28 11:08 | RADIOLOGY IMAGING REPORT ---
FACILITY: [facility] PATIENT NAME: Anne Watkins : 1955 MR: [id number] V: [id number] EXAM DATE: ORDERING PHYSICIAN: AMELIA BALDWIN TECHNOLOGIST: Location: [facility] - [place] Patient: Anne Watkins : 1955 Visit/Account:[id number] Date of Sevice: 03/24/2018 MR BRAIN/BRAIN STEM W/ & W/O CON Comparisons: None. Additional pertinent history: History of lung nodules looking for metastatic disease. TECHNIQUE: Multiplanar, multisequence brain MRI was performed with and without gadolinium contrast. CONTRAST: 15 ml of MultiHance. FINDINGS: Sagittal midline structures and craniocervical junction: Negative. Midline shift: None. Ventricles: Negative. Brain parenchyma: Diffusion weighted imaging: Negative. Gradient sequence: Negative. T2 weighted FLAIR images: Patchy and confluent regions of abnormal increased T2 signal within the p eriventricular and subcortical white matter, nonspecific but could represent early small vessel ische alison change on a chronic basis. Extra-axial spaces: Negative. Dural venous sinuses and major arterial flow voids: Negative. Intracranial enhancement: Negative.. Mastoid air cells and paranasal sinuses: Negative. Surrounding soft tissues and orbits: Negative. Impression: 1. Age related changes as described above. 2. No evidence of acute intracranial pathology. Report Dictated By: Douglas Ware MD at 03/28/2018 10:59 AM Report E-Signed By: Douglas Ware MD at 03/28/2018 11:03 AM WSN:[id number]
--- NOTE | 2018-03-28 12:39 | RADIOLOGY IMAGING REPORT ---
[facility] PATIENT NAME: Anne Watkins : 1955 MR: [id number] V: [id number] EXAM DATE: ORDERING PHYSICIAN: АННА CARTER TECHNOLOGIST: Location: [facility] - [place] Patient: Anne Watkins : 1955 Visit/Account:[id number] Date of Sevice: 03/28/2018 NM BONE SCAN COMPLETE INDICATION: Lung nodules, possible metastatic disease COMPARISON: Chest CT March 22, 2018, abdomen and pelvis CT March 24, 2018 TECHNIQUE: 25.5 mCi technetium 99m MDP injected with subsequent whole body imaging. FINDINGS: Benign degenerative activity noted in the bilateral knee regions and in the right ankle region. Small focus of increased activity in the anterior right seventh rib. No apparent rib fracture or met astatic lesion seen in this rib or in the ribs above and below this rib on the comparison CT. Otherwise unremarkable and normal skeletal activity. Physiologic tracer uptake noted in the extraskeletal structures. Variant positioning of the right ki dney in the mid to lower right abdomen noted. IMPRESSION: 1. Small focus of nonspecific increased activity in the anterior right seventh rib. No apparent abn ormality in this rib on the comparison chest CT. This may represent an age-indeterminate rib fracture which is either new compared to the chest CT or which is occult/not visible on the comparison CT. A metastatic lesion cannot be excluded. Follow-up bone scan should be considered to document stability and to to exclude the development of a dditional pathologic skeletal activity in 1-3 months. 2. Otherwise unremarkable bone scan. Report Dictated By: Grey Eaton MD at 03/28/2018 12:24 PM Report E-Signed By: Grey Eaton MD at 03/28/2018 12:34 PM WSN:[id number]
--- NOTE | 2018-03-28 12:55 | NUR ---
Occupational Therapy Impression Pt. sitting up in reclined bed. Pt. stating that she had already ambulated to bathroom and around foot of bed and did not want to perform any more activities at this time. Occupational Therapy Goals 1. Pt. to recall 3 EC/WS techniques to be implemented daily. 2. Pt. to perform dressing activities with Min A. 3. Pt. to perform toileting activities with Min A. 4. Pt. to perform grooming activities with I. 5. Pt. to acquire necessary DME for home. Patient's Goal
[2018-03-28 14:36] VITALS: BP 125/77
[2018-03-28 15:55] VITALS: Ht 175.3 cm; Wt 114.3 kg
[2018-03-28 21:03] VITALS: BP 124/78
[2018-03-29 03:31] VITALS: BP 103/82
[2018-03-29] MEDS: ALBUTEROL/IPRATROPIUM 3 ML NEB NEB SCH ×4 (05:19→17:09)
--- NOTE | 2018-03-29 08:39 | NUR ---
Physical Therapy Impression Pt pleasant and agreeable to therapy session. SpO2 85% on 12L O2 when pt was at rest in bed. PT increased O2 to 15L for mobility. Pt tolerated ambulation x 70' with RW and slow, step to gait pattern. Pt's main complaint is R) knee pain with ambulation. SpO2 dropped to 80% with mobility, with rest, SpO2 returned to 84%. PT discussed pt's POC with respiratory therapist, RT reports that continued mobility despite above O2 sats is appropriate for this patient. Physical Therapy Goals 1: Pt to complete bed mobility with [place] and HOB flat. 2: Pt to complete transfers with SBA and use of RW 3: Pt to ambulate 25' SBA and use of RW, with SPO2 WNL Patient's Goals
[2018-03-29] MEDS: amLODIPine BESYL(*) 5 MG TAB PO SCH (09:00)
[2018-03-29] MEDS: TRIAMTERENE/HCTZ 37.5-25MG CAPSULE PO SCH (09:00)
[2018-03-29 09:31] VITALS: BP 102/72
[2018-03-29] MEDS: predniSONE 20 MG TAB PO SCH (09:34)
--- NOTE | 2018-03-29 12:33 | RADIOLOGY IMAGING REPORT ---
FACILITY: [facility] PATIENT NAME: Anne Watkins : 1955 MR: [id number] V: [id number] EXAM DATE: ORDERING PHYSICIAN: KAYLEN EMERY TECHNOLOGIST: [place] [facility] [place]: Anne Watkins : 1955 Visit/Account:[id number] Date of Sevice: 03/29/2018 CHEST PA LAT Indication: Worsening hypoxia Comparison: Chest x-ray 11/25/2017 Findings: Lungs: Bilateral pleural effusions are unchanged. There is no focal airspace opacity. Mediastinum/pulmonary vasculature: Cardiomegaly is unchanged. There is mild pulmonary vasculature ce phalization. Bones/soft tissues: Normal. IMPRESSION: 1. Moderate bilateral pleural effusions, unchanged from 11/25/2017. 2. Cardiomegaly with mild pulmonary vasculature cephalization. 3. No acute airspace opacity or pneumonia. Report Dictated By: Yao Sandoval at 03/29/2018 12:28 PM Report E-Signed By: Yao Sandoval at 03/29/2018 12:28 PM WSN:[id number]
--- NOTE | 2018-03-29 14:29 | NUR ---
Occupational Therapy Impression Pt. continues to have a very high O2 demand. Pt. provided with HEP for UB ther. exercises to increase endurance and strength.Pt. ready for d/c when medically appropriate. Continue with POC. Occupational Therapy Goals 1. Pt. to recall 3 EC/WS techniques to be implemented daily. 2. Pt. to perform dressing activities with Min A. 3. Pt. to perform toileting activities with Min A. 4. Pt. to perform grooming activities with I. 5. Pt. to acquire necessary DME for home. Patient's Goal
--- NOTE | 2018-03-29 14:30 | Hospitalist Progress Note ---
Subjective Progress Notes Subjective 62F admitted for acute on chronic hypoxic hypercapnic respiratory failure. Continues to slowly worsen, this am was increased up to Vapotherm from [facility]. Patient Complains of: Respiratory: Cough Physical Exam Vital Signs Date Time Temp Pulse Resp B/P (MAP) Pulse Ox O2 Delivery O2 Flow Rate FiO2 03/29/18 14:05 92 Vapotherm 25.0 85.0 03/29/18 14:05 79 16 03/29/18 09:31 99.3 102/72 (82) Intake and Output 03/29/18 07:00 Intake Total 1736 ml Balance 1736 ml Intake Oral 1736 ml # Voids 11 General Appearance: Alert, Awake, No Acute Distress, Afebrile Neuro: No Gross deficits ENT: Normal Cardiovascular: Normal Rhythm & Peripheral Pulses Respiratory: No Respiratory Distress (markedly decreased breath sounds) GI: Soft and Non-Tender Extremities: Soft and Non Tender, Warm, Pulses, Perfused Integumentary: Skin Intact without Lesion / Mass Result Diagram: 03/28/1853403/28/18534 Assessment and Plan Problems: (1) COPD exacerbation Status: Acute Assessment & Plan: EMS evaluated her after a fall and she was found to have hypoxia with significantly increased oxygen requirement. She had been struggling with worsening SOB for many months. She is on 5 liters of O2 at baseline. Her CT pulmonary angiogram is negative for PE, but did show emphysematous changes and some pulmonary nodules/hilar adenopathy (see below). It also showed possible bibasilar inflammatory/infectious findings. She has been started on nebulizer therapy, steroids, and azithromycin. She continues to have high oxygen requirements and requires BiPAP at night. We decreased her prednisone and stopped antibiotics on 03.28.18. Minimal progress and possibly worsening. (2) Pulmonary nodule Status: Chronic Assessment & Plan: Her chest CT continues to show mediastinal and hilar lymphadenopathy. She also has multiple pulmonary nodules, which are increasing in size concerning for malignancy. She was evaluated by the [facility] (Dr. J Carlos Neal) and a work up is in process. CT scan of abdomen and pelvis unremarkable. Tumor markers are showing an elevated CEA and CA-125. MRI of brain is negative for mass lesion or acute pathology. Will discuss with cancer center.. (3) Essential hypertension Status: Chronic Assessment & Plan: She is on chronic treatment with amlodipine and Dyazide. Hol ding with low blood pressures of therapy. Exam Sepsis Risk: No Definite Risk AVILES KAYLEN EMERY DO Mar 29, 2018 14:30
[2018-03-29 14:34] VITALS: BP 115/66
[2018-03-29 20:00] VITALS: BP 105/69
[2018-03-30] MEDS: ALBUTEROL/IPRATROPIUM 3 ML NEB NEB SCH ×4 (04:49→17:12)
[2018-03-30 07:55] VITALS: BP 113/67
[2018-03-30] MEDS: amLODIPine BESYL(*) 5 MG TAB PO SCH (09:00)
[2018-03-30] MEDS: TRIAMTERENE/HCTZ 37.5-25MG CAPSULE PO SCH (09:00)
[2018-03-30] MEDS: ENOXAPARIN 40 MG/0.4ML SYR SC SCH (09:29)
[2018-03-30] MEDS: predniSONE 20 MG TAB PO SCH (09:29)
[2018-03-30 09:30] VITALS: BP 105/54
[2018-03-30 09:35] VITALS: BP 98/53
[2018-03-30] MEDS ORDERED: POTASSIUM CHL 20 MEQ TABCR PO ONE (11:20)
[2018-03-30] MEDS ORDERED: FUROSEMIDE 20 MG/2 ML VIAL IVP ONE (11:20)
--- NOTE | 2018-03-30 11:59 | NUR ---
Occupational Therapy Impression Pt. lying in bed with daughter present. Pt. refused participation in all ADL and UE strengthening activities. Pt. stating that she had completed UE theraband exercises earlier this am. Occupational Therapy Goals 1. Pt. to recall 3 EC/WS techniques to be implemented daily. 2. Pt. to perform dressing activities with Min A. 3. Pt. to perform toileting activities with Min A. 4. Pt. to perform grooming activities with I. 5. Pt. to acquire necessary DME for home. Patient's Goal
--- NOTE | 2018-03-30 14:08 | NUR ---
pt requesting to have oxygen titrated down. currently on 7L HFNC with an oxygen saturation of 81 percent. MD requested to have pt's oxygen at least 88 percent, pt educated and encouraged to increase oxygen. pt refusing to be turned up any more.
[2018-03-30 14:30] VITALS: BP 115/74
--- NOTE | 2018-03-30 14:40 | NUR ---
pt's oxygenation with latest vitals were as follows: oxygen saturation of 84 percent on 10 L HFNC. when discussing increasing oxygen, pt refused. stated, "keep me low, like I will be at home." provider aware. pt competent to refuse this intervention.
--- NOTE | 2018-03-30 16:03 | Hospitalist Progress Note ---
Subjective Progress Notes Subjective Still with a high O2 requirement. The patient wants to be tried on her baseline of 5 liters. She reports that she is feeling better. Physical Exam Vital Signs Date Time Temp Pulse Resp B/P (MAP) Pulse Ox O2 Delivery O2 Flow Rate FiO2 03/30/18 14:30 99.1 73 22 115/74 (88) 84 High-Flow Nasal Cannula 10.0 03/30/18 11:33 84.0 Intake and Output 03/30/18 06:59 Intake Total 970 ml Balance 970 ml Intake Oral 970 ml # Voids 7 General Appearance: Alert, Awake, No Acute Distress Cardiovascular: Regular Rate and Rhythm Respiratory: Clear to Auscultation Extremities: No Edema Result Diagram: 03/28/18 0535 03/30/18 0510 Assessment and Plan Problems: (1) COPD exacerbation Status: Acute Assessment & Plan: EMS evaluated her after a fall and she was found to have hypoxia with significantly increased oxygen requirement. She had been struggling with worsening SOB for many months. She is on 5 liters of O2 at baseline. Her CT pulmonary angiogram is negative for PE, but did show emphysematous changes and some pulmonary nodules/hilar adenopathy (see below). It also showed possible bibasilar inflammatory/infectious findings. She has been started on nebulizer therapy, steroids, and azithromycin. She continues to have high oxygen requirements and requires BiPAP at night. We decreased her prednisone and stopped antibiotics on 03.28.18. Will try diuresis to see if "drying lungs out" can make some progress with the profound hypoxia. (2) Pulmonary nodule Status: Chronic Assessment & Plan: Her chest CT continues to show mediastinal and hilar lymphadenopathy. She also has multiple pulmonary nodules, which are increasing in size concerning for malignancy. She was evaluated by the [facility] (Dr. J Carlos Neal) and a work up is in process. CT scan of abdomen and pelvis unremarkable. Tumor markers are showing an elevated CEA and CA-125. MRI of brain is negative for mass lesion or acute pathology. Will discuss tomorrow with cancer center.. (3) Essential hypertension Status: Chronic Assessment & Plan: She is on chronic treatment with amlodipine and Dyazide. Holding with low blood pressures of therapy. Exam Sepsis Risk: No Definite Risk MALLORY DAS MD Mar 30, 2018 16:03
[2018-03-30 19:38] VITALS: BP 116/72
[2018-03-31 04:19] VITALS: BP 103/60
[2018-03-31] MEDS: ALBUTEROL/IPRATROPIUM 3 ML NEB NEB SCH ×2 (05:38→09:42)
[2018-03-31 06:37] VITALS: BP 115/73
[2018-03-31] MEDS: predniSONE 20 MG TAB PO SCH (08:15)
[2018-03-31] MEDS: ENOXAPARIN 40 MG/0.4ML SYR SC SCH (08:15)
[2018-03-31] MEDS ORDERED: amLODIPine BESYL(*) 5 MG TAB PO SCH (09:00)
[2018-03-31] MEDS ORDERED: TRIAMTERENE/HCTZ 37.5-25MG CAPSULE PO SCH (09:00)
[2018-03-31] MEDS ORDERED: PRED20TA6 PO (12:26)
--- NOTE | 2018-03-31 12:41 | Hospitalist Depart ---
Discharge Summary Reason for Hosp/Final Diag: (1) COPD exacerbation Status: Acute Hospital Course & Plan: EMS evaluated her after a fall and she was found to have hypoxia with significantly increased oxygen requirement. She had been struggling with worsening SOB for many months. She is on 5 liters of O2 at baseline. Her CT pulmonary angiogram is negative for PE, but did show emphysematous changes and some pulmonary nodules/hilar adenopathy (see below). It also showed possible bibasilar inflammatory/infectious findings. She was started on nebulizer therapy, steroids, and azithromycin. She continues to have high oxygen requirements and we recommend BiPAP at night. We decreased her prednisone and stopped antibiotics on 03.28.18. She is still needing 8L O2 but insists on leaving. There does not appear to be further acute process we can treat so will arrange for increased O2 at home. Appears she has been hypoxic for some time at home based on high Hgb, she also has severe pulmonary hypertension on ECHO from 2012, repeat was unable to evaluate for technical reasons but suspect this has worsened/progressed and is significantly impacting performance status. (2) Pulmonary nodule Status: Chronic Hospital Course & Plan: Her chest CT continues to show mediastinal and hilar lymphadenopathy. She also has multiple pulmonary nodules, which are increasing in size concerning for malignancy. She was evaluated by the [facility] (Dr. Darling) and a work up is in process. CT scan of abdomen and pelvis unremarkable. Tumor markers are showing an elevated CEA and CA-125. MRI of brain is negative for mass lesion or acute pathology. Follow up with Dr Pedro Neal (3) Essential hypertension Status: Chronic Hospital Course & Plan: She is on chronic treatment with amlodipine and Dyazide. Amlodipine was held because of low BP and she is being discharged with instructions to discontinue. Follow up with PCP to recheck BP. Departure Weight (Pounds): 252 Weight (Ounces): 6.0 Result Diagram: 03/28/1835 03/31/18512 Condition: Improved PT/OT Follow Up For: OT For ADL's, PT Evaluation and Treat, OT Evaluation and Treat Home Health RN Follow Up For: Medication Management, Nursing Assessment Home Health FIELD SERVICE TECH Follow Up For: ADL Assistance Discharge Instructions Home Meds Active Scripts Prednisone (PREDNISONE) 20 Mg Tablet, 20 MG PO QDAY for 20 Days, #15 TAB Prov:TRACI EMERYKAYLEN 03/31/18 Ipratropium/Albuterol Sulfate (IPRAT-ALBUT 0.5-3(2.5) MG/3 ML) 3 Ml Ampul.neb, 3 ML NEB QIDR, #30 VIAL Prov:LUCA BELLO DO 11/30/17 Albuterol Sulfate 0.083% (ALBUTEROL SULFATE 0.083%) 2.5 Mg/3 Ml Vial.neb, 2.5 MG NEB Q2HR PRN for WHEEZING/SHORTNESS OF BREATH, #30 VIAL Prov:LUCA BELLO DO 11/30/17 Reported Medications Simvastatin (SIMVASTATIN) 10 Mg Tablet, 10 MG PO HS, TAB 03/22/18 Triamterene/Hydrochlorothiazid (TRIAMTERENE-HCTZ 37.5-25 MG TB) 1 Each Tablet, 1 TAB PO QDAY 03/22/18 Discontinued Reported Medications Amlodipine Besylate (AMLODIPINE BESYLATE) 10 Mg Tablet, 1 TAB PO QDAY, 0 Refills 08/07/12 Special Instructions: We have arranged for a new home concentrator which goes up to 10L. Recommend increasing your oxygen to 8L while at rest and 10L with exertion. Copies to: MATTHIEU DARLING MD; BRIAN GO DO ; Venous Thromboembolism Antithrombotics Is Pt On Any Antithrombotics?: No TRACI EMERYKAYLEN DO Mar 31, 2018 12:41
[2018-03-31 12:57] VITALS: BP 118/67
--- NOTE | 2018-03-31 14:13 | NUR ---
OCCUPATIONAL THERAPY Dressing Assistance: Dressing Aid Required: Bathing Assistance: Bathing Equipment: Home Assessment: Not Completed Feeding Assistance: Set- up Feeding Specialized Equipment: N/A Toilet Use: Modified I/ AE Verbalizes Needs: Yes Understands Precautions: Yes Cooperative: Yes Family Teaching: No Occupational Therapy Comment: Pt. d/c to home with care. Pt.'s grand daughter has acquired FWW and BSC for home use. Pt. provided with Energy conservation/ work simplification education and UE HEP for strengthening/ endurance.
== END 2018-03-31 15:45 | disposition home health service (06) | DRG 190 ==
LOC: ER 13:14 → MED 16:29
PROVIDERS: ADMIT Family Medicine; ATTEND Family Medicine
PROC: 5A09357 Assistance with Respiratory Ventilation, Less than 24 Consecutive Hours, Continuous Positive Airway Pressure (ICD-10-PCS; principal; 2018-03-22)
DX: J44.1 Chronic obstructive pulmonary disease with (acute) exacerbation (principal); J96.22 Acute and chronic respiratory failure with hypercapnia; J96.21 Acute and chronic respiratory failure with hypoxia; I27.20 Pulmonary hypertension, unspecified; I11.0 Hypertensive heart disease with heart failure; I50.9 Heart failure, unspecified; F17.210 Nicotine dependence, cigarettes, uncomplicated; R91.8 Other nonspecific abnormal finding of lung field; R59.0 Localized enlarged lymph nodes; Z91.040 Latex allergy status
CPT/HCPCS: 36415; 36600; 70553; 71046; 71275; 73564; 74177; 78306; 82040; 82247; 82310; 82374; 82378; 82435; 82565; 82803; 82947; 83605; 83880; 84075; 84132; 84155; 84295; 84450; 84460; 84484; 84520; 85025; 85379; 86300; 86301; 86304; 87040; 93005; 93306; 94640; 94660; 94668; 96374; 97162; 97166; 99285; A9503; A9577; J0456; J1650; J2930; J7040; J7050; J7512; J7613; Q9967

== ENCOUNTER → 2018-03-22 | Outpatient (CLI) | payer MEDICARE ==
[2017-11-26 14:47] VITALS: BMI 38.4
[~2018-03-22] MED LIST changes: +ALBU2.5V36 NEB; -AMLO-113 PO; +AMLO-127 PO; +IPRA3AMP10 NEB; +PRED-1 PO; +PRED20TA6 PO; +SIMV-49 PO; +SIMV10TA98 PO; +TRIA-20 PO
== END ==
LOC: AMB 12:33
PROVIDERS: ATTEND Nurse Practitioner
DX: R06.03 Acute respiratory distress (principal); R23.0 Cyanosis
CPT/HCPCS: A0425; A0427

== ENCOUNTER 2018-03-24 14:41 | Outpatient (RCR) | payer MEDICARE, MEDICAID ==
[2017-11-26 14:47] VITALS: BMI 38.4
--- NOTE | 2018-03-24 10:59 | ONCOLOGY CONSULTATION ---
EVENT DATE: March 24, 2018 REFERRING PHYSICIAN Hospitalist team. REASON FOR CONSULTATION Evaluation and management of possible malignancy in her lung. ONCOLOGY HISTORY Patient is a 62-year old female with known history of hypertension, hypercholesterolemia and COPD with chronic bronchitis who was brought to the emergency room after a fall at home and on arrival to the emergency room patient was found to be hypoxemic with 50% saturation so the patient had a CTA chest to rule out the possibility of pulmonary embolus, which was done on March 22, 2018 and this CTA chest showed that the previous nodules which were discovered and were new on her CT scan done on December 26, 2017 are getting larger in size. The previously 7 x 4 mm nodule in the right lower lobe increased from 7 x 4 to 7 x 7 mm. There is another nodule in the right upper lobe previously measured 1.2 x 1 cm and currently 1.9 x 1.4 cm. There is a new 6 mm nodule in the right lower lobe and another new 2 mm subpleural nodule in the right lower lobe. There was another nodule 1.2 x 0.8 cm, pleural based nodule, in the right lower lobe. There is another 8 mm subpleural nodule in the left lower lobe, which was previously 3 mm. The mediastinum did not show any new changes but previously there was prominent lymphadenopathy in the mediastinum. PAST MEDICAL HISTORY 1. COPD with chronic bronchitis. 2. Hypertension. 3. Hypercholesterolemia. PAST SURGICAL HISTORY 1. Appendectomy. 2. . 3. Bilateral knee surgeries. FAMILY HISTORY Patient is adopted and does not know her family history. SOCIAL HISTORY Patient is with three children. She is a retired cook. She smoked one pack a day for over 20 years. She drinks about two hard liquor drinks per day for years. CURRENT MEDICATIONS 1. Prednisone, tapering dose. 2. Ipratropium/Albuterol nebulization. 3. Simvastatin 20 mg at bedtime. 4. Amlodipine 10 mg tablet daily. ALLERGIES No known drug allergies but she has ALLERGY to LATEX. REVIEW OF SYSTEMS CONSTITUTIONAL: No appetite or weight change. No fever, chills or sweating. No recent infection. HEENT: Ears: No tinnitus or hearing problem. Nose: No nasal discharge or epistaxis. Throat: No sore throat or mouth ulcers. Eyes: No diplopia or visual changes. RESPIRATORY: She has shortness of breath but denies any cough or chest pain. CARDIOVASCULAR: No chest pain, orthopnea, or paroxysmal nocturnal dyspnea (PND). No edema. No palpitations. GASTROINTESTINAL: No nausea or vomiting. No diarrhea or constipation. No change in bowel movements. No heartburn or swallowing difficulties. No abdominal pain. No jaundice. No hematemesis, melena or rectal bleeding. GENITOURINARY: Patient has had heavy periods for years, and she has been seen by a jewel waxer, and she was offered uterine ablation, but the patient refused the procedure. As per patient, she has had heavy periods for a total of seven days every month. MUSCULOSKELETAL: No pain in the muscles, joints or bones. NEUROLOGICAL: She has some numbness in the toes. HEMATOLOGIC/LYMPHATIC: She bruises easily. SKIN: No skin rash or lumps. PSYCHIATRIC: No anxiety or depression. PHYSICAL EXAMINATION GENERAL: Looks stable. Well-developed, well-nourished, and in no acute distress. VITAL SIGNS: Blood pressure 131/79, pulse 85 per minute, respirations 16 per minute, pulse ox 90% on 15 L/minute oxygen. HEENT: Head: Atraumatic. No sinus tenderness to palpation. Eyes: No icterus or conjunctivitis. Mouth and Throat: No oral thrush or mucositis. NECK: Supple. No cervical or supraclavicular lymphadenopathy. LUNGS: Clear to auscultation and percussion bilaterally. HEART: Regular rate and rhythm. No gallops, murmurs, clicks or rubs. ABDOMEN: Soft and lax. No tenderness. No hepatosplenomegaly. No masses. EXTREMITIES: No cyanosis, clubbing or edema. LYMPHATICS: No peripheral lymphadenopathy. NEUROLOGICAL: Conscious, alert and oriented x3. No focal motor or sensory deficits. PSYCHIATRIC: Mood and affect appear normal. SKIN: No skin rash, bruise or purpuric eruption. ASSESSMENT Multiple pulmonary nodules enlarging rapidly in both lungs, highly suspicious for metastatic disease but primary lung is still a possibility. I am planning to get CT abdomen and pelvis with contrast, oral and intravenously, to look for an origin for this could be metastatic disease of the lungs. I am planning also to complete staging to get a bone scan and MRI of the brain. If we would find the primary, then we will go for CT-guided biopsy of that primary but if not we will look for the largest and most accessible nodule, especially the pleural or subpleural one to do the biopsy from that nodule to get the pathological diagnosis. I am planning also to run a battery of tumor markers including CA 27-29, CA 15-3, CA 125, CEA and CA 19-9. I will see the patient after those blood work and imaging studies to decide about further evaluation and management. I had a long discussion with the patient and her daughters and they are agreeable with the plan of management. PLAN 1. CT abdomen and pelvis with IV and oral contrast. 2. MRI of the brain with and without contrast. 3. Bone scan. 4. CA 125. 5. CA 27-29. 6. CA 15-3. 7. CEA. 8. CA 19-9. 9. Further evaluation and management will depend on the results of the above tests. 10. I will continue to follow. MTDD
[~2018-03-24 14:41] MED LIST changes: +SIMV10TA98 PO; +TRIA-20 PO
[2018-03-31] MEDS ORDERED: PRED20TA6 PO (12:26)
--- NOTE | 2018-04-08 12:55 | NUR ---
Nurse called the patient to give her the appointment time for CT guided lung biopsy. The patient stated that she "didn't think that was necessary". Nurse asked the patient if that meant that she was not going to pursue any treatment and she stated that she was not planning on pursuing any treatment. The nurse informed her that if she changed her mind that she could call us and we would get her back on our schedule. Patient stated that she understood.
== END 2018-06-21 ==
LOC: ONC 14:41
PROVIDERS: ATTEND Internal Medicine Hematology
DX: R91.8 Other nonspecific abnormal finding of lung field (principal); I10 Essential (primary) hypertension; E78.00 Pure hypercholesterolemia, unspecified; J44.0 Chronic obstructive pulmonary disease with (acute) lower respiratory infection; Z87.891 Personal history of nicotine dependence

== ENCOUNTER 2018-06-23 16:42 | Inpatient (IN) | payer MEDICAID, MEDICARE ==
[~2018-06-23] VITALS: Ht 175.3 cm; Wt 109.0 kg
[2018-06-23] MEDS ORDERED: NS(*) 0.9% 500 ML BAG 500 ML IV ONE (16:49)
--- NOTE | 2018-06-23 16:49 | ER Report ---
History and Physical Time Seen By MD: 16:49 HPI/ROS CHIEF COMPLAINT: Dyspnea HISTORY OF PRESENT ILLNESS: Patient is a 62-year-old female here with complaints of increasing dyspnea over the course of the past 24 hours. Patient reportedly was 75% SPO2 on 10 L home oxygen. Patient was placed on BiPAP with an in-line nebulizer treatment prior to arrival. Patient has a long-standing history of recurrent COPD exacerbations. REVIEW OF SYSTEMS: Constitutional: No fever, no chills. Eyes: No discharge. ENT: No sore throat. Cardiovascular: No chest pain, no palpitations. Respiratory: + cough, + progressive worsening shortness of breath. Gastrointestinal: No abdominal pain, no vomiting. Genitourinary: No hematuria. Musculoskeletal: No back pain. Skin: No rashes. Neurological: No headache. Allergies: Coded Allergies: latex (Verified Allergy, Unknown, EYE REACTION, 03/22/18) Home Meds Active Scripts Prednisone (PREDNISONE) 20 Mg Tablet, 20 MG PO QDAY for 20 Days, #15 TAB Prov:KAYLEN AHUMADA DO 03/31/18 Ipratropium/Albuterol Sulfate (IPRAT-ALBUT 0.5-3(2.5) MG/3 ML) 3 Ml Ampul.neb, 3 ML NEB QIDR, #30 VIAL Prov:LUCA BELLO DO 11/30/17 Albuterol Sulfate 0.083% (ALBUTEROL SULFATE 0.083%) 2.5 Mg/3 Ml Vial.neb, 2.5 MG NEB Q2HR PRN for WHEEZING/SHORTNESS OF BREATH, #30 VIAL Prov:LUCA BELLO DO 11/30/17 Reported Medications Simvastatin (SIMVASTATIN) 10 Mg Tablet, 10 MG PO HS, TAB 03/22/18 Triamterene/Hydrochlorothiazid (TRIAMTERENE-HCTZ 37.5-25 MG TB) 1 Each Tablet, 1 TAB PO QDAY 03/22/18 Hx Smoking: Yes Smoking Status: Current: Every Day Smoker Hx Substance Use Disorder: No Hx Alcohol Use: Yes (1-2 drinks/day) Constitutional Vital Sign - Last 24 Hours 06/23/18 06/23/18 16:46 16:57 Temp 97.1 Pulse 98 Resp 28 B/P (MAP) 106/45 Pulse Ox 91 O2 Delivery CPAP O2 Flow Rate 10.0 Physical Exam General Appearance: The patient is alert, has no immediate need for airway protection and no signs of toxicity. Moderate distress due to SOB Eyes: Pupils equal and round no pallor or injection. ENT, Mouth: Mucous membranes are moist. Respiratory: + diminished BS b/l, scant wheezing, minimal crackles b/l Cardiovascular: Regular rate and rhythm. Gastrointestinal: Abdomen is soft and non tender, no masses, bowel sounds nor mal. Neurological: Alert and oriented, no focal neurological findings on exam Skin: Warm and dry, no rashes. Musculoskeletal: Neck is supple non tender. Extremities are nontender, nonswollen and have full range of motion. DIFFERENTIAL DIAGNOSIS: After history and physical exam differential diagnosis was considered for shortness of breath including but not limited to pulmonary infectious process, COPD, asthma, pulmonary embolus and congestive heart failure. Medical Decision Making Data Points Result Diagram: 06/23/18 1635 06/23/18 1635 Laboratory Hematology Test 06/23/18 16:35 06/23/18 17:25 Red Blood Count 5.24 M/uL (4.17-5.56) Mean Corpuscular Volume 95.9 fL (80.0-96.0) Mean Corpuscular Hemoglobin 30.8 pg (26.0-33.0) Mean Corpuscular Hemoglobin Concent 32.1 g/dL (32.0-36.0) Red Cell Distribution Width 15.3 % (11.5-14.5) Mean Platelet Volume 8.9 fL (7.2-11.1) Neutrophils (%) (Auto) 77.6 % (39.4-72.5) Lymphocytes (%) (Auto) 13.7 % (17.6-49.6) Monocytes (%) (Auto) 5.7 % (4.1-12.4) Eosinophils (%) (Auto) 1.9 % (0.4-6.7) Basophils (%) (Auto) 1.1 % (0.3-1.4) Nucleated RBC Relative Count (auto) 0.0 /100WBC Neutrophils # (Auto) 7.4 K/uL (2.0-7.4) Lymphocytes # (Auto) 1.3 K/uL (1.3-3.6) Monocytes # (Auto) 0.5 K/uL (0.3-1.0) Eosinophils # (Auto) 0.2 K/uL (0.0-0.5) Basophils # (Auto) 0.1 K/uL (0.0-0.1) Nucleated RBC Absolute Count (auto) 0.00 K/uL Prothrombin Time 11.6 seconds (12.0-14.4) Prothromb Time International Ratio 0.85 Activated Partial Thromboplast Time 25 seconds (23-35) Sodium Level 140 mmol/L (137-145) Potassium Level 4.1 mmol/L (3.5-5.0) Chloride Level 86 mmol/L (98-107) Carbon Dioxide Level 52 mmol/L (22-31) Blood Urea Nitrogen 20 mg/dl (7-18) Creatinine 0.50 mg/dl (0.52-1.04) Glomerular Filtration Rate Calc > 60.0 Random Glucose 113 mg/dl (75-110) Calcium Level 9.5 mg/dl (8.4-10.2) Magnesium Level 1.8 mg/dl (1.7-2.2) Total Bilirubin 0.4 mg/dl (0.2-1.3) Aspartate Amino Transf (AST/SGOT) 13 U/L (0-35) Alanine Aminotransferase (ALT/SGPT) 23 U/L (0-56) Alkaline Phosphatase 64 U/L (0-126) Troponin I 0.137 ng/ml B-Type Natriuretic Peptide 82 pg/ml (0-100) Total Protein 6.7 g/dl (6.3-8.2) Albumin 3.8 g/dl (3.5-5.0) Carboxyhemoglobin 2.7 % (< 5.0) Lactate 1.3 mmol/L (0.7-2.1) Chemistry Test 06/23/18 16:35 06/23/18 17:25 White Blood Count 9.5 k/uL (4.5-11.0) Red Blood Count 5.24 M/uL (4.17-5.56) Hemoglobin 16.2 g/dL (12.0-16.0) Hematocrit 50.3 % (34.0-47.0) Mean Corpuscular Volume 95.9 fL (80.0-96.0) Mean Corpuscular Hemoglobin 30.8 pg (26.0-33.0) Mean Corpuscular Hemoglobin Concent 32.1 g/dL (32.0-36.0) Red Cell Distribution Width 15.3 % (11.5-14.5) Platelet Count 245 K/uL (150-450) Mean Platelet Volume 8.9 fL (7.2-11.1) Neutrophils (%) (Auto) 77.6 % (39.4-72.5) Lymphocytes (%) (Auto) 13.7 % (17.6-49.6) Monocytes (%) (Auto) 5.7 % (4.1-12.4) Eosinophils (%) (Auto) 1.9 % (0.4-6.7) Basophils (%) (Auto) 1.1 % (0.3-1.4) Nucleated RBC Relative Count (auto) 0.0 /100WBC Neutrophils # (Auto) 7.4 K/uL (2.0-7.4) Lymphocytes # (Auto) 1.3 K/uL (1.3-3.6) Monocytes # (Auto) 0.5 K/uL (0.3-1.0) Eosinophils # (Auto) 0.2 K/uL (0.0-0.5) Basophils # (Auto) 0.1 K/uL (0.0-0.1) Nucleated RBC Absolute Count (auto) 0.00 K/uL Prothrombin Time 11.6 seconds (12.0-14.4) Prothromb Time International Ratio 0.85 Activated Partial Thromboplast Time 25 seconds (23-35) Glomerular Filtration Rate Calc > 60.0 Calcium Level 9.5 mg/dl (8.4-10.2) Magnesium Level 1.8 mg/dl (1.7-2.2) Total Bilirubin 0.4 mg/dl (0.2-1.3) Aspartate Amino Transf (AST/SGOT) 13 U/L (0-35) Alanine Aminotransferase (ALT/SGPT) 23 U/L (0-56) Alkaline Phosphatase 64 U/L (0-126) Troponin I 0.137 ng/ml B-Type Natriuretic Peptide 82 pg/ml (0-100) Total Protein 6.7 g/dl (6.3-8.2) Albumin 3.8 g/dl (3.5-5.0) Carboxyhemoglobin 2.7 % (< 5.0) Lactate 1.3 mmol/L (0.7-2.1) Coagulation Test 06/23/18 16:35 Prothrombin Time 11.6 seconds Prothromb Time International Ratio 0.85 Activated Partial Thromboplast Time 25 seconds EKG/Imaging EKG Interpretation 12 lead EKG: Normal sinus rhythm, ventricular rate 84, QTC 456, no arrhythmias or ischemic changes. Rhythm: normal sinus rhythm [place]: normal QRS: normal ST segments: normal Imaging Please see radiology report, increased pulmonary congestion and patchy opacities compared to prior. ED Course/Re-evaluation ED Course Patient is a 62-year-old female with a smoking history, COPD history, here with progressive 24-hour course of increasing dyspnea consistent with prior COPD exacerbations. Patient was then be 75% on 10 L home O2. Patient was placed on BiPAP, given in-line nebulizer by EMS with moderate relief of symptoms. Chest x- ray, stacked DuoNeb's, Solu-Medrol, magnesium were administered at time of arrival as well as normal saline 500 mL bolus. Patient was given Levaquin for antimicrobial coverage. Patient was transitioned to BiPAP with significant improvement in ventilation and oxygenation. Patient had a PCO2 of 103 prompting BiPAP. I discussed the patient with Dr. Helen aggarwal who accepted the patient to the hospitalist service for further optimization and care. Patient was stable at time of admission. Decision to Disposition Date: June 23, 2018 Decision to Disposition Time: 18:08 Depart Departure Latest Vital Signs Vital Signs Date Time Temp Pulse Resp B/P (MAP) Pulse Ox O2 Delivery O2 Flow Rate FiO2 06/23/18 16:57 10.0 06/23/18 16:46 97.1 98 28 106/45 91 CPAP Impression: Primary Impression: COPD exacerbation Additional Impression: Hypoxia Condition: Improved Disposition: Admitted from ER Referrals: BRIAN GO DO (PCP) Problem Qualifiers BELKIS CASE DO June 23, 2018 16:49
[2018-06-23] MEDS ORDERED: LEVOFLOXACIN/D5W 750 MG/150 ML 150 ML IVPB ONE (16:50)
[2018-06-23] MEDS ORDERED: methylPREDNIS SUCC 125 MG/2ML IVP ONE (16:50)
[2018-06-23] MEDS ORDERED: ALBUTEROL/IPRATROPIUM 3 ML NEB NEB SCH (16:50)
[2018-06-23] MEDS ORDERED: MAGNESIUM SUL* 2 GM/50 ML IVPB 50 ML IVPB ONE (16:55)
[2018-06-23 17:02] LABS: PLATELET COUNT, AUTOMATED 245 K/uL (150-450)
[2018-06-23 17:13] LABS: INR 0.85
[2018-06-23 19:13] VITALS: BP 121/83
[2018-06-23] MEDS ORDERED: INFLUENZA VIRUS VAC 0.5ML SYR IM ONLY ONE (19:20)
[2018-06-23] MEDS ORDERED: ALBUTEROL 2.5 MG/3 ML NEB NEB PRN (19:20)
[2018-06-23] MEDS ORDERED: ACETAMINOPHEN 325 MG TAB PO PRN (19:20)
[2018-06-23] MEDS ORDERED: FLUSH 10 ML SYR IVP PRN (19:20)
--- NOTE | 2018-06-23 19:25 | RADIOLOGY IMAGING REPORT ---
FACILITY: [facility] - [place] PATIENT NAME: Anne Watkins : 1955 MR: [id number] V: [id number] EXAM DATE: ORDERING PHYSICIAN: BELKIS CASE TECHNOLOGIST: Location: [facility] Patient: Anne Watkins : 1955 Visit/Account:[id number] Date of Sevice: 06/23/2018 INDICATION: Respiratory distress DATE: 06/23/2018 7:18 PM. TECHNIQUE: CHEST SINGLE AP COMPARISON: Chest radiograph March 29, 2018 FINDINGS: Stable enlargement of the cardiac silhouette. There are small effusions, slightly larger on the right than left and overall similar to the prior study. The hilar vasculature is indistinct. The interstitium is prominent, and there is haziness at the bases. IMPRESSION: Small right greater than left pleural effusions, hilar indistinctness, enlargement of the cardiac monique houette, and interstitial prominence suggesting edema. Report Dictated By: Triston Melchor MD at 06/23/2018 7:18 PM Report E-Signed By: Triston Melchor MD at 06/23/2018 7:21 PM WSN:[id number]
--- NOTE | 2018-06-23 19:38 | History & Physical ---
History of Present Illness Chief Complaint dyspnea History of Present Illness 62F presented with complaint of dyspnea. PMHx significant for severe COPD. Feeling more SOB and having some chest congestion for last 48 hours. EMS report saturation in 75% range on 10L, baseline 8L. SHe continues to smoke. In ER ABG showed respiratory acidosis, hypoxia, CO2 retention. Troponin mildly elevated due to hypoixia, EKG pending, denies CP, CXR appears to correlate with chronic lung processes. Started on BiPAP and admitted for further treatment. History Problems: (1) COPD (chronic obstructive pulmonary disease) with chronic bronchitis Status: Acute (2) Hypertension (3) Pulmonary nodule Status: Chronic Home Meds Active Scripts Prednisone (PREDNISONE) 20 Mg Tablet, 20 MG PO QDAY for 20 Days, #15 TAB Prov:TRACI EMERYKAYLEN DO 03/31/18 Ipratropium/Albuterol Sulfate (IPRAT-ALBUT 0.5-3(2.5) MG/3 ML) 3 Ml Ampul.neb, 3 ML NEB QIDR, #30 VIAL Prov:LUCA BELLO 11/30/17 Albuterol Sulfate 0.083% (ALBUTEROL SULFATE 0.083%) 2.5 Mg/3 Ml Vial.neb, 2.5 MG NEB Q2HR PRN for WHEEZING/SHORTNESS OF BREATH, #30 VIAL Prov:LUCA BELLO 11/30/17 Reported Medications Simvastatin (SIMVASTATIN) 10 Mg Tablet, 10 MG PO HS, TAB 03/22/18 Triamterene/Hydrochlorothiazid (TRIAMTERENE-HCTZ 37.5-25 MG TB) 1 Each Tablet, 1 TAB PO QDAY 03/22/18 Allergies: Coded Allergies: latex (Verified Allergy, Unknown, EYE REACTION, 03/22/18) Patient History: Patient reports no known family medical history. Hx Smoking: Yes Smoking Status: Current: Every Day Smoker Caffeine Intake: Coffee Caffeine/Cups Per Day: 6 Hx Alcohol Use: Yes (1-2 drinks/day on occ) Hx Substance Use Disorder: No Review of Systems All Systems Reviewed/Normal: Yes, Except as Noted Respiratory: Shortness of Breath, Cough Exam Vital Signs Vital Signs Date Time Temp Pulse Resp B/P (MAP) Pulse Ox O2 Delivery O2 Flow Rate FiO2 06/23/18 19:13 97.4 84 18 121/83 (96) 88 Bi-PAP 100.0 5/9/19 16:57 10.0 General Appearance: Alert, Awake, Afebrile Neuro: No Gross deficits Cardiovascular: Normal Rhythm & Peripheral Pulses Respiratory: Other (decreased bilaterally, on BiPAP) GI: Abd Soft and Non-Tender Extremities: Soft and Non Tender, Warm, Pulses, Perfused Medical Decision Making Data Points Result Diagram: 06/23/18 1635 06/23/18 1635 Assessment and Plan Problems: (1) Acute on chronic respiratory failure with hypoxia and hypercapnia Assessment & Plan: ABG shows mild acidosis and pCO2 102. Placed on BiPAP, begin Solu-Medrol IV, continue levofloxacin given her poor respiratory function. Trend troponin and will get EKG. (2) Demand ischemia Assessment & Plan: Secondary to hypoxia and increased demand. Will trend troponin and get EKG to verify this is demand ischemia. (3) COPD (chronic obstructive pulmonary disease) with chronic bronchitis Status: Acute Assessment & Plan: Severe, baseline 8L O2. Continues to smoke. (4) Hypertension Assessment & Plan: No chronic medications per reconciliation. (5) Pulmonary nodule Status: Chronic Assessment & Plan: These nodules have increased in size and are concerning for metastatic disease. Follows with Dr J Carlos Vergara. Venous Thromboembolism Antithrombotics Is Pt On Any Antithrombotics?: Yes Exam Sepsis Risk: No Definite Risk AVILES KAYLEN EMERY DO June 23, 2018 19:38
--- NOTE | 2018-06-23 20:53 | EKG ---
FACILITY: [facility] - [place] PATIENT NAME: KEON FORBES : [id number] MR: [id number] V: [id number] EXAM DATE: ORDERING PHYSICIAN: KAYLEN LANG TECHNOLOGIST: NADER Greenberg Reason : ELEVATED TROPONIN Blood Pressure : / mmHG Vent. Rate : 083 BPM Atrial Rate : 083 BPM P-R Int : 132 ms QRS Dur : 082 ms QT Int : 356 ms P-R-T Axes : 082 105 061 degrees QTc Int : 418 ms Sinus rhythm with occasional premature ventricular complexes Septal infarct (cited on or before 04-AUG-2012) Abnormal ECG When compared with ECG of 23-JUN-2018 17:24, No significant change was found Confirmed by Kaylen Tirado ([id number]) on 06/24/2018 7:48:53 AM Referred By: Confirmed By:Kaylen Lang
--- NOTE | 2018-06-23 20:56 | EKG ---
FACILITY: [facility] PATIENT NAME: KEON FORBES : [id number] MR: [id number] V: [id number] EXAM DATE: ORDERING PHYSICIAN: BELKIS CASE TECHNOLOGIST: ELEAZAR Test Reason : SOB Blood Pressure : / mmHG Vent. Rate : 084 BPM Atrial Rate : 084 BPM P-R Int : 126 ms QRS Dur : 084 ms QT Int : 386 ms P-R-T Axes : 089 107 082 degrees QTc Int : 456 ms Normal sinus rhythm Septal infarct (cited on or before 04-AUG-2012) Abnormal ECG When compared with ECG of 22-MAR-2018 13:08, No significant change was found Confirmed by Douglas Tirado ([id number]) on 06/24/2018 7:47:09 AM Referred By: EVIE Confirmed By:Douglas Lang
[2018-06-24 00:17] VITALS: BP 108/64
[2018-06-24] MEDS: methylPREDNIS SUCC 125 MG/2ML IVP SCH ×3 (00:21→12:00)
[2018-06-24] MEDS: ALBUTEROL/IPRATROPIUM 3 ML NEB NEB SCH ×3 (05:26→14:30)
[2018-06-24 06:16] LABS: PLATELET COUNT, AUTOMATED 213 K/uL (150-450)
[2018-06-24 07:21] VITALS: BP 100/69
[2018-06-24] MEDS ORDERED: ENOXAPARIN 40 MG/0.4ML SYR SC SCH (09:00)
[2018-06-24 09:40] VITALS: BMI 35.4
[2018-06-24] MEDS ORDERED: MORPHINE 2 MG/ML SYR IVP PRN (11:10)
--- NOTE | 2018-06-24 12:45 | Hospitalist Progress Note ---
Subjective Progress Notes Subjective She reports little improvement with the SOB with the BIPAP use. She is currently requiring FiO2 100% to maintain her saturations. She desaturates very quickly and actually had a syncopal event when she took of the mask and ambulated. The patient reports that even before this admission her quality of life was very poor. Physical Exam Vital Signs Date Time Temp Pulse Resp B/P (MAP) Pulse Ox O2 Delivery O2 Flow Rate FiO2 06/24/18 11:00 43 Room Air 06/24/18 10:48 40.0 06/24/18 09:53 92 27 06/24/18 09:46 100.0 06/24/18 07:21 99.1 100/69 (79) Intake and Output 06/24/18 07:00 Intake Total 594 ml Balance 594 ml IV Total 594 ml # Voids 3 General Appearance: Alert, Awake, Other (mild to moderate wob) Neuro: No Gross deficits (Answers questions appropriately) Cardiovascular: Regular Rate and Rhythm Respiratory: Clear to Auscultation (Doesn't move air well to the bases.) Extremities: No Edema Integumentary: No Jaundice, No Cyanosis Result Diagram: 06/24/1839 06/24/18538 Assessment and Plan Problems: (1) Acute on chronic respiratory failure with hypoxia and hypercapnia Assessment & Plan: She presented with worsening dyspnea for 24 hours prior to admission. ABG continues to show respiratory acidosis with a pH 7.29 and a pCO2 >90. Placed on BiPAP, and started on Solu-Medrol IV/levofloxacin given her poor respiratory function. Despite treatment the patient hasn't had much noticeable improvement. The patient's daughter was present during the visit. We all discussed that possibility that the patient might not get much better and if she worsened would likely pass away. We discussed pursing comfort measures. The patient reports that even before this admission her quality of life was very poor. She would like to pursue comfort measures now. She took off the BIPAP and tried to ambulate. She had a syncopal event, turned blue and desaturated very quickly. She is going to wait until another daughter arrives and then wants to take off the BIPAP. She expresses understanding that taking off the BIPAP will likely cause her to . (2) COPD (chronic obstructive pulmonary disease) with chronic bronchitis Status: Acute Assessment & Plan: Severe, baseline 8L O2. Continues to smoke. (3) Demand ischemia Assessment & Plan: Secondary to hypoxia and increased demand. Troponin decreasing. Will not follow further. (4) Hypertension Assessment & Plan: No chronic medications per reconciliation. (5) Pulmonary nodule Status: Chronic Assessment & Plan: These nodules have increased in size and are concerning for metastatic disease. Follows with Dr J Carlos Vergara. Exam Sepsis Risk: No Definite Risk MALLORY DAS MD June 24, 2018 12:45
[2018-06-24 14:53] VITALS: Ht 175.3 cm; Wt 109.0 kg
--- NOTE | 2018-06-24 16:05 | Miscellaneous Provider Note ---
Miscellaneous Provider Note Note The patient expressed that she doesn't want anymore medications. Levofloxacin, methylprednisolone, DuoNebs and Lovenox were stopped. The prn albuterol was continued. MALLORY DAS MD June 24, 2018 16:05
[2018-06-24] MEDS ORDERED: LEVOFLOXACIN 750 MG TAB PO SCH (17:00)
[2018-06-24] MEDS: MORPHINE 2 MG/ML SYR IVP PRN ×3 (21:40→22:45)
[2018-06-24] MEDS ORDERED: LORazepam 2 MG/ML VIAL IVP PRN (22:20)
[2018-06-25] MEDS: MORPHINE 2 MG/ML SYR IVP PRN (00:01)
--- NOTE | 2018-06-25 00:24 | Death Summary ---
Pronounced Date: June 25, 2018 Pronounced Time: 00:10 Preliminary Cause of : Respiratory failure secondary to COPD exacerbation Assessment: Demand Ischemia HTN Hyperlipidemia History of Present Illness Please see admission history and physical for details. Hospital Course The patient wanted to be comfort care only, so most the medications were stopped. She was taken off the BiPAP mask in the evening. She was given morphine and lorazepam for air hunger and anxiety. She was found pulseless and without respirations. Family was outside the room and notified that she had passed. Copies to: BRIAN GO DO ; MALLORY DAS MD June 25, 2018 00:24
== END 2018-06-25 00:10 | disposition expired | DRG 189 ==
LOC: ER 17:42 → MED 18:32
PROVIDERS: ADMIT Internal Medicine; ATTEND Internal Medicine
PROC: 5A09357 Assistance with Respiratory Ventilation, Less than 24 Consecutive Hours, Continuous Positive Airway Pressure (ICD-10-PCS; principal; 2018-06-23)
DX: J96.21 Acute and chronic respiratory failure with hypoxia (principal); J44.1 Chronic obstructive pulmonary disease with (acute) exacerbation; E87.2 Acidosis; I24.8 Other forms of acute ischemic heart disease; Z51.5 Encounter for palliative care; R55 Syncope and collapse; F17.210 Nicotine dependence, cigarettes, uncomplicated; I10 Essential (primary) hypertension; E78.5 Hyperlipidemia, unspecified; R91.1 Solitary pulmonary nodule; Z91.040 Latex allergy status
CPT/HCPCS: 36415; 36600; 71045; 82040; 82247; 82310; 82374; 82375; 82435; 82565; 82803; 82947; 83605; 83735; 83880; 84075; 84132; 84155; 84295; 84450; 84460; 84484; 84520; 85025; 85610; 85730; 87040; 87502; 93005; 94640; 94660; 96365; 96375; 99284; J1650; J1956; J2060; J2270; J2930; J3475; J7040

== ENCOUNTER → 2018-06-23 | Outpatient (CLI) | payer MEDICARE ==
[~2018-06-23] MED LIST changes: +PRED20TA6 PO
[2018-06-24 14:53] VITALS: BMI 35.4
== END ==
LOC: AMB 16:23
PROVIDERS: ATTEND Nurse Practitioner
DX: R06.00 Dyspnea, unspecified (principal); R05 Cough
CPT/HCPCS: A0425; A0427